=== PATIENT | male | born 1960 | race Caucasian/White ===

== ENCOUNTER 2024-10-08 15:41 | Observation (INO) | payer SELFPAY ==
[2024-10-08] VITALS (12 sets, daily range): BP systolic 95–188; BP diastolic 64–112; PULSE 64–91; BMI 22.3; BMI 23.3
[2024-10-08 09:53] LABS: % Basophils 0.6 % (0-2); % Eosinophils 2.4 % (0-6); % Immature Granulocytes 0.1 % (0-0.5); % Monocytes 6.9 % (1.7-9.3); Absolute Eosinophils 0.2 10^3/uL (0-0.7); Absolute Lymphocytes 2.1 10^3/uL (1.2-3.4); Absolute Monocytes 0.5 10^3/uL (0.1-0.6); Absolute Neutrophils 4.2 10^3/uL (1.4-6.5); Hematocrit 41.4 % (39.0-52.0); Hemoglobin 13.7 g/dL (13.0-18.0); Mean Corp Hgb Conc. 33.1 g/dL (33.0-37.0); Mean Corpuscular Volume 90.6 fL (80.0-94.0); Mean Platelet Volume 9.4 fL (7.4-10.4); Nucleated Red Blood Cells % 0 % (-); Platelet Count 245 10^3/uL (130-400); Red Blood Cell Count 4.57 10^6/uL (4.70-6.10); Red Cell Dist. Width 13.5 % (11.5-14.5); White Blood Cell Count 6.9 10^3/uL (4.8-10.8)
[2024-10-08 10:11] LABS: ALT (SGPT) 25 U/L (0-50); AST (SGOT) 24 U/L (17-59); Albumin 4.1 g/dl (3.5-5.0); Alkaline Phosphatase 78 U/L (38-126); Blood Urea Nitrogen 10 mg/dl (9-20); Calcium 9.3 mg/dl (8.4-10.2); Carbon Dioxide 27 mmol/L (22-30); Chloride 104 mmol/L (98-107); Glucose 115 mg/dl (70-99); Potassium 3.9 mmol/L (3.5-5.1); Sodium 137 mmol/L (135-145); Total Bilirubin 0.7 mg/dl (0.2-1.3); Total Protein 7.5 g/dl (6.3-8.2); eGFR > 60.00
--- NOTE | 2024-10-08 12:05 | EDRN ---
Radhika BROWN in room w/ pt at this time.
--- NOTE | 2024-10-08 13:52 | ED.GENMED ---
History of Present Illness
General
Chief Complaint: Fainting/Passed Out
Source: patient
Exam Limitations: none
Time Seen by Provider: 10/08/24 12:02
History of Present Illness
History of Present Illness:
64-year-old male presents with coworker and friend who states the patient has been having passing out episodes weekly over the past 3 weeks. Patient describes sudden drop attacks that are not preceded by chest pain or lightheadedness. It can
happen while he is sitting or standing. He cannot identify any significant trigger. He denies current chest pain. He denies a headache. Most recent episode was yesterday. The friend that accompanies him currently saw it happen. Friend had to
catch him before he hit the floor. Patient denies headache. No vision change. No unilateral numbness or weakness. No other complaints at this time
Phy Exam
Physical Exam
Physical Exam:
General: Well-appearing male no acute respiratory distress
HEENT: Normocephalic pupils equal round reactive to light atraumatic extract motions are intact
Heart: Regular rate and rhythm no murmurs
Lungs: Clear no wheeze
Neurologic exam: Alert and oriented no facial asymmetry good strength to the upper lower extremities
Extremities: No cyanosis
Skin: Warm no rash
Course
Orders/Labs/Results
Orders:
Orders
10/08/24 09:27
Electrocardiogram (*1) Urgent
Reason for Study: Syncope
EKG- Treatment ONCE
10/08/24 09:36
Complete Blood Count/With Diff Urgent
Comprehensive Metabolic Panel Urgent
10/08/24 12:13
CT Head W/o Iv Contrast Urgent
Comment:
Reason For Exam: syncope
Abnormal Lab Results
10/08/24
09:36
RBC 4.57 L 10^6/uL
(4.70-6.10)
Glucose 115 H mg/dl
(70-99)
10/08/24 09:36
0227/25 09:36
Vital Signs
Initial and Last Documented VS:
Initial Vital Signs
Temp Pulse Resp BP Pulse Ox
97.9 F 85 16 169/86 99
10/08/24 09:24 10/08/24 09:24 10/08/24 09:24 10/08/24 09:24 10/08/24 09:24
Last Documented Vital Signs
Temp Pulse Resp BP Pulse Ox
97.9 F 78 16 160/81 99
10/08/24 09:24 10/08/24 14:15 10/08/24 14:15 10/08/24 14:00 10/08/24 14:15
MDM/Problems Addressed
Differential Diagnosis Includes:
Drop attacks. Consider syncope versus seizure versus arrhythmia verse electrolyte abnormality
CT head was ordered which was negative. Labs reviewed without significant finding. There is no arrhythmias currently on monitor but patient has had frequent episodes over the past 3 weeks.
*Critical Care Note
Total Time (30-74mins, 75-104mins- exclusive of procedures): Not Applicable
Update Note
Update Note:
CT head negative. Concern for recurrent syncope with lack of prodrome with 3 recent episodes. Discussed with emergency room attending. Will admit to hospital for syncopal workup
ED Attending Note
-
Portions of this chart may have been created with voice recognition software.� Occasional wrong word or��sound alike� substitutions may have occurred due to the inherent limitations of voice recognition software.
Discharge Plan
Departure
Patient Disposition: Admit
Date of Disposition: 10/08/24
Time of Disposition: 14:18
Presentation/result/management discussed w/ accepting MD/DO: Hospitalist
Discharge Problem:
Syncope
Referrals:
NONE,* [Family Provider] -
Interventions
Interventions:
*Risk Screen - Suicide Last Done: 10/08/24 09:27
*General Assessment Last Done: 10/08/24 12:15
*Neglect/Abuse Screening Last Done: 10/08/24 09:27
ED- Fall Risk Assessment Last Done: 10/08/24 12:08
*ED COVID-19 Vaccine History Last Done: 10/08/24 12:15
ED- Cardiac Assessment Last Done: 10/08/24 12:22
ED- Neurological Assessment Last Done: 10/08/24 12:22
Discharge Date and Time
Print Language: FAROESE
--- NOTE | 2024-10-08 14:17 | EDRN ---
Pt OOB to BR and back to stretcher at this time. Friend has stepped out to get them both some food. Radhika BROWN said pt is okay to eat.
--- NOTE | 2024-10-08 14:40 | HPS.HSE ---
Family Physician
-
Family Physician: * NONE
Chief Complaint
-
passing out multiple times
History of Present Illness
64M Nauruan speaker no significant PMHX and PSHX, former ETOH use disorder, current smoker BiB coworker and friend seen at ER ;
- reports has been having passing out episodes weekly over the past 3 weeks.
- Most recent episode was yesterday.
- The friend that accompanies him currently saw it happen. Friend had to catch him before he hit the floor.
- describes sudden drop attacks that are not preceded by chest pain or lightheadedness.
- It can happen while he is sitting or standing.
- patent cannot identify any significant trigger.
Medical History
Past Medical History
Past Medical History: Reports None
Past Surgical History: Reports None
Social History
Tobacco: Non-smoker
Alcohol: None
Drug: None
Family History
Family History: Not pertinent
Allergies / Home Medications
Allergies reflects when Allergies were last updated in [email or web address].
Home Medications with original date entered in [email or web address]
Allergy/Medication List:
Allergies
Allergy/AdvReac Type Severity Reaction Status Date / Time
No Known Allergies Allergy Unverified 10/08/24 09:27
Review of Systems
-
Constitutional: Reports No Symptoms
EENT: Reports No Symptoms
Respiratory: Reports No Symptoms
Cardiac: Reports Syncope
Abdomen/GI: Reports No Symptoms
: Reports No Symptoms
Musculoskeletal: Reports No Symptoms
Skin: Reports No Symptoms
Neurological: Reports Other (syncope )
Endocrine: Reports No Symptoms
Hematologic/Lymphatic: Reports No Symptoms
Psych: Reports No Symptoms
Physical Exam
Vital Signs
Vital Signs
Temp Pulse Resp BP Pulse Ox
97.9 F 78 16 160/81 99
10/08/24 09:24 10/08/24 14:15 10/08/24 14:15 10/08/24 14:00 10/08/24 14:15
Physical Exam
General: Well Developed, Well Nourished and No Apparent Distress
HEENT: NormoCephalic, Moist mucous membranes and Atraumatic
Respiratory: Clear
Cardiac: S1/S2 and Regular Rhythm; No Murmur or Rub
GI: Soft, Non Tender, Non Distended and Normal Bowel Sounds; No Organomegaly
Rectal: Deferred by Provider
Musculoskeletal: No Clubbing, No Cyanosis and No Edema
Skin: No Rash
Neuro: Nonfocal/grossly intact
Laboratory Results
-
10/08/24 09:36
10/08/24 09:36
Laboratory Results
Total Bilirubin 0.7 mg/dl (0.2-1.3) 10/08/24 09:36
AST 24 U/L (17-59) 10/08/24 09:36
ALT 25 U/L (0-50) 10/08/24 09:36
Alkaline Phosphatase 78 U/L (38-126) 10/08/24 09:36
Data Reviewed
-
CT Scan: Report Reviewed by me
Medical Tests (Nuc Med, Echo, EKG etc): Report Reviewed by me
Lab Data: Labs Reviewed by me
Impression/Plan
-
Data
Unremarkable labs
CT Head W/o Iv Contrast
- No acute intracranial abnormality.
- Chronic ethmoid sinus inflammatory changes.
EKG
NORMAL SINUS RHYTHM
POSSIBLE LEFT ATRIAL ENLARGEMENT
LEFT AXIS DEVIATION
SEPTAL INFARCT , AGE UNDETERMINED
INFERIOR INFARCT
ABNORMAL ECG
NO PREVIOUS ECGS AVAILABLE
Confirmed by MORENO CARPENTER MD ([id number]) on 10/08/2024 1:32:31 PM
NO PRIOR hospitalist admission:
ASSESSMENT & PLAN
64M Nauruan speaker no significant PMHX and PSHX, former ETOH use disorder, current smoker BiB coworker and friend seen at ER for
passing out episodes weekly over the past 3 weeks;
Recurrent syncope without prodrome or preceding symptoms.
DDX: syncope versus seizure versus valvular heart dz vesus arrhythmia vs occult substance use disorder
HX multiple drop attacks 3 episodes in the past 3 weeks
HX Syncope of uncertain etiolgy in Aug 2024
- EKG and monitory show NSR
- NEG HCT
- Unremarkable admission labs
- UDS to complete work up
- TLM monitor
- ECHO in AM
- Ortho VSS
- Neuro consult
- CBC Card consult
Hi SBP
No priot HX benign HTN
- IV hydralazine PRN for SBP > 165, DBP > 110
- Observe BP
Former ETOH use disorder
- no signs of autonomic hyperaroousdal
- Observe VSS
Current smoker
- Nicotine replacement Tx
DVT Px: SQH
Full code
Obs TLM
--- NOTE | 2024-10-08 14:59 | EDRN ---
Radhika BROWN in to see pt.
--- NOTE | 2024-10-08 15:06 | EDRN ---
Dr. Franco in to see pt at this time.
--- NOTE | 2024-10-08 15:12 | CON.CAR ---
Addendum entered and electronically signed by Arvind Caldera MD 10/08/24 16:59:
64 yo male with h/o tobacco abuse, no routine medical care is admitted with recurrent syncope. He has episodes where he could be sitting or standing at work, feels 'shaky', and passes out. No chest pain. Exam with RRR, no murmurs, no edema.
Tele and EKG: normal sinus rhythm. EKG shows anterior, inferior infarct pattern. TnI pending.
Syncope. We are consulted to investigate cardiac etiology. Monitor tele overnight. Echo and stress in AM. If testing normal, will recommend outpatient predatory game hunter.
Original Note:
Consultation
Consultation Request
Date/Time Consultation Requested: 10/08/24 1445
Date/Time Consultation Performed: 10/08/24 1500
Requesting Provider: Dr. Franco
Performing Provider: Honey SELLERS for Dr. Caldera
Reason for Consultation: syncope
Medical History
-
Chief Complaint: LOC
History of Present Illness:
64 y/o male with hx syncope (details unclear but it happened about 5 years ago and he was hospitalized and does not recall, and then once last year and EMS checked on him, but he did not get further medical attention) and current smoker. He does not
see medical providers routinely. He is here for 3 episodes of LOC in the past 3 weeks. 3 weeks ago, his friend found him face down on the ground and confused. Last week, he was talking while sitting in the car and his hands started shaking, then his
eyes rolled back into his head and LOC lasted about 30 seconds. Finally, yesterday, while walking he started to go down and his friend caught him and brought him to the ground and said he saw his eyes roll back and after he came to he was, again
confused. Patient denies memory of this. He denies dizziness, CP, or SOB.
Past Medical History
Past Medical History: Other (as above)
Social History
Tobacco: Smoker
Alcohol: None
Drug: None
Family History
Family History: Reviewed & Not Pertinent
Allergies / Home Medications
Allergy/AdvReac Type Severity Reaction Status Date / Time
No Known Allergies Allergy Unverified 10/08/24 09:27
�Medication �Instructions �Recorded �Confirmed �Type
No Meds [No Current Medications] 10/08/24 10/08/24 History
Review of Systems
-
History Source: Patient and Other (and friend)
Neurological: Other (Loss of consciousness as described)
Physical Exam
Vital Signs
Temp Pulse Resp BP Pulse Ox
97.9 F 78 16 160/81 99
10/08/24 09:24 10/08/24 14:15 10/08/24 14:15 10/08/24 14:00 10/08/24 14:15
Lab Results
10/08/24 09:36
10/08/24 09:36
Physical Exam
General: Well Developed, Well Nourished and No Apparent Distress
HEENT: Normocephalic and Anicteric
Respiratory: Clear and Non Labored Respirations
Cardiac: Regular Rhythm
Musculoskeletal: No Edema
Skin: Warm and Dry
Neuro: AO x 3
Psych: Calm
Impression / Plan
-
Loss of consciousness/syncope:
-etiology unknown
-follow telemetry. EKG mildly abnormal as noted.
-will check troponin. Also check echo and stress echo this admit.
-neuro consulted as well
Elevated BP:
-may need to add meds- follow trend
Smoker:
-will need education on cessation prior to d/c
Data Reviewed
-
EKG: Tracing Personally Visualized and interpreted (NSR 76 BPM LAD, septal infarct)
CT Scan: Report Reviewed by me (No acute intracranial abnormality. Chronic ethmoid sinus inflammatory changes.)
Labs: Labs Reviewed by me
--- NOTE | 2024-10-08 15:19 | EDRN ---
Honey SELLERS w/ cardiology in room w/pt at this time.
[2024-10-08] MEDS: NICODERM TRANSDERMAL 21 MG TRANSDERM (15:21)
--- NOTE | 2024-10-08 17:27 | EDRN ---
Call placed to floor that No Delay Report sent to floor at 17:05. Message left for RN who will care for pt.
--- NOTE | 2024-10-08 17:37 | EDRN ---
ordered labs troponin and urine drug screen sent to lab at this time.
[2024-10-08 17:55] LABS: Amphetamines Negative (Negative); Barbiturates Negative (Negative); Benzodiazepines Negative (Negative); Buprenorphine Negative (Negative); Cocaine Negative (Negative); Marijuana Negative (Negative); Methadone Negative (Negative); Methamphetamines Negative (Negative); Opiates Negative (Negative); Phencyclidine Negative (Negative); Tricyclic Antidepressants Negative (Negative)
[2024-10-08 18:10] LABS: Troponin I < 0.012 ng/ml
--- NOTE | 2024-10-08 18:20 | PTCARENOTE ---
Pt admitted to 4W from ED, ambulated from stretcher to bed with standby assist. AAOx3, no acute complaints at this time. Educated pt on use of call rangel and plan of care.
[2024-10-08] MEDS: HEPARIN 5000 UNITS SC (19:26)
[2024-10-09 03:24] VITALS: BP 122/66
[2024-10-09 06:29] LABS: Hematocrit 40.1 % (39.0-52.0); Hemoglobin 13.7 g/dL (13.0-18.0); Mean Corp Hgb Conc. 34.2 g/dL (33.0-37.0); Mean Corpuscular Hgb 30.4 pg (27.0-31.0); Mean Corpuscular Volume 89.1 fL (80.0-94.0); Mean Platelet Volume 10.3 fL (7.4-10.4); Platelet Count 250 10^3/uL (130-400); Red Cell Dist. Width 13.6 % (11.5-14.5); White Blood Cell Count 6.8 10^3/uL (4.8-10.8)
[2024-10-09 07:09] LABS: Blood Urea Nitrogen 14 mg/dl (9-20); Calcium 9.2 mg/dl (8.4-10.2); Carbon Dioxide 23 mmol/L (22-30); Chloride 106 mmol/L (98-107); Estimated Creatinine Clearance 97 ml/min; Glucose 83 mg/dl (70-99); Potassium 4.5 mmol/L (3.5-5.1); Sodium 136 mmol/L (135-145); eGFR > 60.00
[2024-10-09] MEDS: HEPARIN 5000 UNITS SC (07:14)
[2024-10-09 07:23] LABS: TSH 2.81 uIU/ml (0.47-4.68)
[2024-10-09 07:51] VITALS: BP 139/80
--- NOTE | 2024-10-09 09:53 | EEG.RPT ---
Electroencephalogram Report
Recording
Date of EE10/09/24
Type of EEG: Routine
Length of EEG recordin minutes
Done with Video Recording: Yes
Patient Status: Inpatient
Recording Conditions: Awake and Drowsy
Hyperventilation Performed: No
Photic Stimulation Performed: Yes
Report
LESS THAN 1 HOUR EEG REPORT
LESS THAN 1 HOUR EEG INTERPRETATION:
Unremarkable EEG for age
CLINICAL CORRELATION:
A normal EEG does not rule out a diagnosis of epilepsy. If clinical suspicion for seizure persists, a prolonged recording may be warranted.
Clinical correlation is advised.
METHODS:
A 21 channel digitized electroencephalogram (EEG) was performed using the 10/20 international system of electrode placement and one-lead of ECG recorded. Video was recorded. Persyst quantitative EEG analysis was performed.
ELECTROENCEPHALOGRAPHER IMPRESSION(S):
Quality of study
Good
Background
There was an unremarkable anterior-posterior voltage gradient of alpha frequency.
With eye opening the background activity changed to a low voltage mixture of frequencies.
There were no significant asymmetries of background activity noted.
Sleep
Drowsiness present
Photic Stimulation
Produced driving symmetrically in most flash frequencies
ECG
Normal sinus rhythm
--- NOTE | 2024-10-09 12:06 | W.PN.HOSP.TC ---
Today's Communication/Plan
-
See plan
Assessment / Plan
Assessment / Plan
Impression:
Presentation with recurrent syncopal episodes.
No prior history of cardiovascular disease
Patient describes burning 2 episodes a year, although had 3 over the past months.
Reports prodromal. With body shakes and lightheadedness.
Last few episodes happened while squatting.
Denies any chest pain, abdominal pain.
Reports lower extremity pain on ambulation most likely claudication
ECG normal sinus rhythm
Echocardiogram with preserved biventricular function and no valvular abnormalities.
Stress echo nondiagnostic due to poor exercise tolerance with inability to achieve target heart rate. Exercise stopped due to leg numbness and funny feeling in the head.
Check lipid profile.
Lower extremity arterial ultrasound QUIANA�PVR.
Abdominal aorta ultrasound
Carotid ultrasound
Consider low-dose of aspirin and statin.
Will need outpatient cardiac monitoring, will be set up
Additional ischemic evaluation likely with nuclear stress test as outpatient
Noted to be orthostatic
Normal BMP
Will give IV fluids and monitor BP/orthostatic vital signs
Alcohol use disorder. Describes binge drinking, although remains sober for over a year.
Tobacco use disorder
Continue nicotine patch
Counseled and encouraged to quit
Anticipated Discharge: 24 - 48 hours
Subjective/Interval History
-
Date of Service: October 09, 2024
Objective Data
-
Labs:
Laboratory Results
10/09/24
05:18
WBC 6.8
Hgb 13.7
Hct 40.1
Plt Count 250
Sodium 136
Potassium 4.5
Chloride 106
Carbon Dioxide 23
BUN 14
Creatinine 0.7
Glucose 83
Calcium 9.2
Vital Signs:
Vital Signs
Temp Pulse Resp BP Pulse Ox
97.3 F 64 18 139/80 95
10/09/24 07:51 10/09/24 07:51 10/09/24 07:51 10/09/24 07:51 10/09/24 08:00
I&O
10/08/24 10/09/24 10/10/24
06:59 06:59 06:59
Intake Total 240 / 240
Output Total 400 / 400
Balance -160 / -160
Physical Exam
-
General: Well Developed and No Apparent Distress
HEENT: Normocephalic, Atraumatic and Moist Mucous Membranes
Respiratory: Clear to Auscultation
Cardiac: Regular Rhythm and S1/S2; Negative Murmur, Rub or Gallop
GI: Soft, Nontender, Nondistended and Normal Bowel Sounds; Negative Organomegaly
Rectal: Deferred by Provider
Musculoskeletal: No Clubbing, No Cyanosis and No Edema
Skin: Negative Rash
Neuro: Nonfocal/Grossly Intact
[2024-10-09 12:39] LABS: HDL Cholesterol 46 mg/dl; LDL Cholesterol, Calculated 153 mg/dl; Total Cholesterol 214 mg/dl (50-199); Triglyceride 76 mg/dl (10-149); Very Low Density Lipoprotein 15 mg/dl (0-30)
[2024-10-09] MEDS: NICODERM TRANSDERMAL 21 MG TRANSDERM (12:48)
[2024-10-09] MEDS: NSS 1000 IV (12:49)
--- NOTE | 2024-10-09 14:39 | CM ---
retail account manager reviewed patient's chart and met with patient and patient resides alone in a one story home, patient is independent with adl's and ambulation, no dme, patient does not have insurance and no PCP, uses [facility], patient is
originally from the [facility] and has supports from family and friends in area from the [place].
Plan; Home no needs
--- NOTE | 2024-10-09 15:09 | W.PN.CD ---
Today's Communication / Plan
-
Follow-up QUIANA/PVRs
If positive for PAD, start ASA 81 mg and high intensity statin
Start amlodipine 5 mg for elevated blood pressure
2-week outpatient monitor will be mailed to him
We will request cardiology follow-up with our office
Impression / Plan
-
64 yo male with h/o tobacco abuse, no routine medical care is admitted with recurrent syncope.
Loss of consciousness/syncope:
-etiology unknown. Possibly orthostatic hypotension. Unlikely cardiac syncope as he has a prodrome and echo with no structural heart disease.
-We will set up a 2-week outpatient monitor. No arrhythmias on telemetry here.
-neuro consulted as well
Claudication
-Had symptoms of leg numbness limiting his stress echocardiogram
-Follow-up QUIANA/PVRs (done but not read)
-Start ASA 81 mg and high-dose statin if he has evidence of PAD
Elevated BP:
-BP is mostly above goal here
-Start amlodipine 5 mg daily
Smoker:
-will need education on cessation prior to d/c
Subjective: Orthostatics positive. Receiving 1 L IV fluids at time of my assessment. Stress echo done earlier today was nondiagnostic due to leg numbness during the test. Probable claudication. QUIANA/PVRs ordered in addition to carotid ultrasound.
He feels well and is wondering when he can go home.
Physical Exam
Vital Signs/Labs
Vital Signs
Temp Pulse Resp BP Pulse Ox
97.3 F 64 18 139/80 95
10/09/24 07:51 10/09/24 07:51 10/09/24 07:51 10/09/24 07:51 10/09/24 08:00
10/08/24 10/09/24 10/10/24
06:59 06:59 06:59
Actual Weight 65.346 kg
10/09/24 05:18
10/09/24 05:18
Triglycerides 76 mg/dl (10-149) 10/09/24 05:18
LDL Cholesterol, Calc 153 mg/dl 10/09/24 05:18
VLDL Cholesterol, Calc 15 mg/dl (0-30) 10/09/24 05:18
HDL Cholesterol 46 mg/dl 10/09/24 05:18
TSH 2.81 uIU/ml (0.47-4.68) 10/09/24 05:18
LAB Results
10/08/24
17:32
Troponin I < 0.012
Physical Exam
Constitutional: No acute distress and Comfortable
Cardiovascular: Rhythm & rate is regular, Pedal edema is absent, S1S2 is normal and Murmur/rub/gallop absent
Respiratory: Respiratory effort normal and Lungs clear to auscul.
Neuro/Psych: AO x 3
Data Reviewed
-
Date of Service: October 09, 2024
Medical Decision Making: Reviewed Test Results, Independent Historian Assessment, Test Interpretation and Review of Case with other Provider
EKG: Tracing Personally Visualized and interpreted
Echo: Tracing Personally Visualized and interpreted
Labs: Labs Reviewed by me
[2024-10-09 15:40] VITALS: BP 180/92
[2024-10-09] MEDS: NORVASC 5 MG PO (15:40)
--- NOTE | 2024-10-09 17:44 | W.DS.TRANS ---
DC Summary - [employer]
-
Discharge Instructions:
Discharge Diagnosis/Procedures Syncope
Diet Low Cholesterol
Others Tests A cardiac nurse has been ordered for you.
This will be mailed to your home.
Instructions:
Stand-Alone Forms:
Changes to Home Medications: Yes
Discharge Medications:
DC Medications w/original date entered in [facility]
amlodipine 5 mg tablet 5 mg PO DAILY #30 tabs 10/09/24
aspirin 81 mg capsule 81 mg PO DAILY #30 caps 10/09/24
atorvastatin 20 mg tablet (Lipitor) 20 mg PO DAILY #30 tabs 10/09/24
Home Medication Changes
All of above
Pending Results: No
--- NOTE | 2024-10-09 18:10 | CON.NEURO ---
Neuro Assessment/Plan
Assessment
Head CT imgs rev'd, normal
EEG normal
syncope. doubt seizure.
agree, outpatient heart monitoring
Plan
no further neuro workup recommended
Consultation
Order
Date of Consultation: 10/09/24
Requesting Provider:
Reason for Consult:
Subjective/Objective
Subjective Data
Date of Service: October 09, 2024
He is a 64 year old man with recurrent syncopal episodes x3 weeks. At times, preceded by aura like feeling intoxicated. no post ictal.
patient thinks it may be triggered by intense emotion.
Objective Data
Vital Signs
Temp Pulse Resp BP Pulse Ox
36.3 C 74 18 180/92 99
10/09/24 15:40 10/09/24 15:40 10/09/24 15:40 10/09/24 15:40 10/09/24 15:40
Lab Results
10/09/24 05:18
10/09/24 05:18
Sodium 136 mmol/L (135-145) 10/09/24 05:18
Potassium 4.5 mmol/L (3.5-5.1) 10/09/24 05:18
BUN 14 mg/dl (9-20) 10/09/24 05:18
Glucose 83 mg/dl (70-99) 10/09/24 05:18
Calcium 9.2 mg/dl (8.4-10.2) 10/09/24 05:18
LDL Cholesterol, Calc 153 mg/dl 10/09/24 05:18
Ur Buprenorphine Negative (Negative) 10/08/24 17:33
Patient Allergies
No Known Allergies Allergy (Unverified 10/08/24 09:27)
Physical Exam
-
AAOx3, speech clear, language intact
VFF, EOMI, face symmetric
full strength b/l UE/LE
sensation intact to touch
Medications
-
Active Medications
Generic Name Dose Route Start Last Admin
Trade Name Freq PRN Reason Stop Dose Admin
Amlodipine Besylate 5 mg 10/09/24 16:00 10/09/24 15:40
Amlodipine 5 Mg Tablet PO 11/06/24 15:59 5 mg
DAILY PAULINO Administration
Bisacodyl 10 mg 10/08/24 17:40
Bisacodyl 10 Mg Rectal Suppository RECTAL 11/05/24 17:39
[id number] PRN
constipation
Heparin Sodium 5,000 units 10/08/24 20:00 10/09/24 07:14
Heparin 5,000 Units/Ml 1 Ml Vial SC 11/05/24 19:59 5,000 units
Q12 PAULINO Administration
Hydralazine HCl 5 mg 10/08/24 17:40
Hydralazine 20 Mg/Ml Vial IV 11/05/24 17:39
Q4HPRN PRN
for SBP > 165, DBP > 110
Sodium Chloride 1,000 mls @ 100 mls/hr 10/09/24 11:15 10/09/24 12:49
Nss IV 1,000 mls
.Q10H PAULINO Administration
Nicotine 21 mg 10/09/24 12:00 10/09/24 12:48
Nicotine 21 Mg Patch TRANSDERM 11/06/24 11:59 21 mg
DAILY PAULINO Administration
Patch Removal 1 patch 10/09/24 22:00
Remove Nicotine Patch REMOVE 11/06/24 21:59
HS PAULINO
Polyethylene Glycol 17 grams 10/08/24 17:40
Polyethylene Glycol Powder 17 Grams Packet PO 11/05/24 17:39
DAILYPRN PRN
constipation
Senna/Docusate Sodium 1 tablet 10/08/24 17:40
Docusate W/Senna (Julia-Colace) Tablet PO 11/05/24 17:39
BIDPRN PRN
constipation
Sodium Chloride 0 flush 10/08/24 18:00
Sodium Chloride 0.9% (Flush) Syringe IV 11/05/24 17:59
PER PROTOCOL PAULINO
Home Medications
�Medication �Instructions �Recorded
amlodipine 5 mg tablet 5 mg PO DAILY #30 tabs 10/09/24
aspirin 81 mg capsule 81 mg PO DAILY #30 caps 10/09/24
atorvastatin 20 mg tablet (Lipitor) 20 mg PO DAILY #30 tabs 10/09/24
== END 2024-10-09 18:17 | disposition home or self-care (01) ==
LOC: 4 WEST ACU 15:41
PROVIDERS: Nurse Practitioner; ADMITTING PHYSICIAN Internal Medicine; ATTENDING PHYSICIAN Internal Medicine; CONSULT PHYSICIAN Internal Medicine; CONSULT PHYSICIAN Psychiatry & Neurology Clinical Neurophysiology; EMERGENCY PHYSICIAN Emergency Medicine
DX: R55 Syncope and collapse (principal); F17.200 Nicotine dependence, unspecified, uncomplicated; R94.31 Abnormal electrocardiogram [ECG] [EKG]; F10.11 Alcohol abuse, in remission; R41.0 Disorientation, unspecified; R03.0 Elevated blood-pressure reading, without diagnosis of hypertension; I73.9 Peripheral vascular disease, unspecified; I71.40 Abdominal aortic aneurysm, without rupture, unspecified; I51.7 Cardiomegaly; R25.1 Tremor, unspecified; R42 Dizziness and giddiness; R20.0 Anesthesia of skin; M79.606 Pain in leg, unspecified; Z60.3 Acculturation difficulty; Z79.82 Long term (current) use of aspirin; Z79.899 Other long term (current) drug therapy
CPT/HCPCS: 93017; 70450; 76770; 80048; 80053; 80061; 80306; 84443; 84484; 85025; 85027; 93005; 93320; 93325; 93350; 93880; 93922; 95816; 99285; G0378

== ENCOUNTER → 2024-11-09 13:40 | Outpatient (REF) | payer OTHER, SELFPAY | LOC: CLINIC 13:40 | PROVIDERS: ATTENDING PHYSICIAN Surgery Vascular Surgery; FAMILY PHYSICIAN Nurse Practitioner Adult Health; OTHER PHYSICIAN Nurse Practitioner | DX: I71.43 Infrarenal abdominal aortic aneurysm, without rupture (principal); I65.22 Occlusion and stenosis of left carotid artery | CPT/HCPCS: 70496; 70498; Q9967 ==

== ENCOUNTER → 2024-11-11 08:22 | Outpatient (REF) | payer OTHER, SELFPAY | LOC: RCS 08:22 | PROVIDERS: ATTENDING PHYSICIAN Student in an Organized Health Care Education/Training Program; FAMILY PHYSICIAN Nurse Practitioner Adult Health | DX: R55 Syncope and collapse (principal) | CPT/HCPCS: 93225; 93226 ==

== ENCOUNTER → 2024-11-20 11:47 | Outpatient (REF) | payer OTHER, SELFPAY | LOC: HWRCS 11:47 | PROVIDERS: ATTENDING PHYSICIAN Nurse Practitioner | DX: R55 Syncope and collapse (principal) | CPT/HCPCS: 78452; 93017; A9500; J2785 ==

== ENCOUNTER 2024-12-08 05:55 | Inpatient (IN) | payer OTHER, SELFPAY ==
[2024-12-01 09:29] VITALS: BMI 24.0
[2024-12-01 10:05] LABS: INR 1.09; PT 14.4 Sec (11.4-14.6)
[2024-12-01 10:06] LABS: APTT 32.4 Sec (23.4-35.0)
[2024-12-01 10:15] LABS: % Basophils 0.7 % (0-2); % Eosinophils 2.4 % (0-6); % Immature Granulocytes 0.1 % (0-0.5); % Lymphocytes 30.2 % (20.5-51.1); % Monocytes 8.6 % (1.7-9.3); Absolute Basophils 0.1 10^3/uL (0-0.2); Absolute Eosinophils 0.2 10^3/uL (0-0.7); Absolute Lymphocytes 2.4 10^3/uL (1.2-3.4); Absolute Monocytes 0.7 10^3/uL (0.1-0.6); Absolute Neutrophils 4.6 10^3/uL (1.4-6.5); Hematocrit 41.4 % (39.0-52.0); Hemoglobin 13.8 g/dL (13.0-18.0); Mean Corp Hgb Conc. 33.3 g/dL (33.0-37.0); Mean Corpuscular Hgb 30.3 pg (27.0-31.0); Mean Platelet Volume 9.3 fL (7.4-10.4); Nucleated Red Blood Cells % 0 % (-); Platelet Count 280 10^3/uL (130-400); Red Blood Cell Count 4.55 10^6/uL (4.70-6.10); Red Cell Dist. Width 13.7 % (11.5-14.5)
[2024-12-01 10:19] LABS: Blood Urea Nitrogen 12 mg/dl (9-20); Calcium 10.1 mg/dl (8.4-10.2); Carbon Dioxide 29 mmol/L (22-30); Chloride 103 mmol/L (98-107); Estimated Creatinine Clearance 97 ml/min; Glucose 92 mg/dl (70-99); Potassium 5.2 mmol/L (3.5-5.1); Sodium 141 mmol/L (135-145); eGFR > 60.00
[2024-12-08] VITALS (36 sets, daily range): BP systolic 103–168; BP diastolic 60–99
[2024-12-08] MEDS: PERIDEX 0.12% ORAL RINSE 15 ML PO (07:13)
[2024-12-08] MEDS: NSS 500 IV (07:13)
[2024-12-08] MEDS: BACTROBAN NASAL 1 GRAM NASAL (07:13)
[2024-12-08] MEDS: LOW STRENGTH ASPIRIN 81 MG PO (07:18)
--- NOTE | 2024-12-08 07:24 | W.SUR.PREOP ---
Pre-Operative Surgical Note
-
I have examined this patient prior to the performance of the scheduled procedure.
The patient's condition is unchanged from the time of the current History and
Physical and the patient is able to undergo the scheduled procedure.
[2024-12-08 08:38] LABS: ACT-LR - POC 273 Seconds (116-155)
[2024-12-08 09:15] LABS: ACT-LR - POC 263 Seconds (116-155)
--- NOTE | 2024-12-08 09:22 | W.SUR.POST ---
Surgical Immediate Post Op
Note
Pre Op Diagnosis: Left carotid artery stenosis
Post Op Diagnosis:Left carotid artery stenosis
Procedure Performed: Left carotid endarterectomy
Primary Surgeon: Eric Miller III, MD
Secondary Surgeons: Julieta Ruth, PGY1
Anesthesia: GETA
Estimated Blood Loss: 12 ml
Fluids: See anesthesia flowsheet
Drains/Shunts: N/A
Specimens/Cultures: Left carotid plaque
Doppler/Duplex/Angio (Y/N): Y
Complications: None
Operative Findings: Successful removal of left carotid artery plaque causing carotid artery stenosis, upon awakening patient was able to move bilateral upper extremities and lower extremities to command and spontaneously
--- NOTE | 2024-12-08 09:38 | OR.RPT ---
Operative Report
Operative Report
Date of Operation: 12/08/2024
Pre Op Diagnosis: High-grade stenosis left internal carotid artery, asymptomatic
Post Op Diagnosis: High-grade stenosis left internal carotid artery, asymptomatic
Procedure: LEFT carotid endarterectomy with patch angioplasty using bovine pericardium
Surgeon: Eric Miller III, MD
Optical Technician: Julieta Ruth MD PGY1
Anesthesia: General
Complications: None
History and Indications for Procedure: 64-year-old male with high-grade asymptomatic left internal carotid artery stenosis
Procedure in Detail: Fredo Farnsworth was correctly identified and placed supine on the operating table. After adequate induction of anesthesia the left neck was positioned, prepped and draped in the usual sterile fashion. Preoperative antibiotics
were administered. A timeout procedure was performed with the nursing and anesthesia staff confirming the patients identity as well as the nature and laterality of the procedure.
The carotid bifurcation was marked with ultrasound at the beginning of the case. The incision was planned accordingly. An incision was made along the anterior border of the left sternocleidomastoid muscle. Electrocautery was used to divide the
subcutaneous tissue and platysma. The carotid sheath was entered with sharp dissection. The internal jugular vein was retracted laterally. The vagus nerve was identified and protected throughout the case. The common carotid artery was identified at
the base of this incision and carefully encircled with a vessel loop. The patient was systemically heparinized. The dissection was continued distally towards the carotid bifurcation. The facial vein was skeletonized, ligated and divided between ties
and clips. The proximal external carotid artery was encircled with a vessel loop. The distal internal carotid artery was encircled with a vessel loop at a soft spot on the artery beyond the plaque. The hypoglossal nerve was identified and protected.
The internal vessel loop was secured followed by the common and external. An arteriotomy was made on the distal common carotid artery with an 11-blade. This was extended proximally and distally with Gaviria scissors. The arteriotomy was extended
distally through the plaque to an area of normal appearing internal carotid artery. The distal vessel loop was replaced with a short tip hockey-stick type vascular clamp. An endarterectomy was performed with a Henderson elevator in the standard
fashion. The proximal extent of the plaque was transected with scissors. The distal end of the plaque in the internal carotid artery was feathered. A slight distal intimal flap was tacked down along the posterior wall with a single 7-0 Prolene
suture. The plaque extending into the external carotid artery was everted. Once the plaque was fully removed the endarterectomy plane was irrigated with heparinized saline and any loose fronds of tissue were removed. A pre-cut piece of bovine
pericardium was sewn in place using a running 6-0 Prolene suture. Prior to the completion of the patch the common carotid was allowed to forward bleed and the external was allowed to back bleed. The area under the patch was irrigated with
heparinized saline to remove any potential thrombus or debris. The anastomosis was completed.
The external vessel loop was released first, followed by the common and then the internal. There was an excellent pulse in the distal internal carotid artery. An excellent quality Doppler signal in the distal internal carotid artery was also
confirmed. The patch suture line was closely inspected for hemostasis and was achieved. Protamine was administered. Hemostasis was achieved in the wound bed. The wound was irrigated with saline solution.
The wound was then closed in layers. Sterile skin glue was applied. The patient awoke from anesthesia with no immediate neuro deficits and was taken to the PACU in stable condition.
Attestation: I was present and responsible for the entire procedure
Signed:
Eric Miller III, MD
Vascular Surgery
[facility]
[2024-12-08 10:18] LABS: Hemoglobin 12.3 g/dL (13.0-18.0); Mean Corp Hgb Conc. 34.2 g/dL (33.0-37.0); Mean Corpuscular Hgb 30.3 pg (27.0-31.0); Mean Corpuscular Volume 88.7 fL (80.0-94.0); Mean Platelet Volume 9.3 fL (7.4-10.4); Platelet Count 218 10^3/uL (130-400); Red Blood Cell Count 4.06 10^6/uL (4.70-6.10); Red Cell Dist. Width 13.7 % (11.5-14.5); White Blood Cell Count 13.7 10^3/uL (4.8-10.8)
[2024-12-08 10:34] LABS: Blood Urea Nitrogen 12 mg/dl (9-20); Calcium 8.5 mg/dl (8.4-10.2); Carbon Dioxide 22 mmol/L (22-30); Chloride 105 mmol/L (98-107); Estimated Creatinine Clearance 114 ml/min; Glucose 126 mg/dl (70-99); Potassium 4.2 mmol/L (3.5-5.1); Sodium 136 mmol/L (135-145); eGFR > 60.00
[2024-12-08] MEDS: OFIRMEV 100 IV (10:35)
[2024-12-08] MEDS: SUBLIMAZE 25 MCG IV (11:28)
[2024-12-08] MEDS: NSS 1000 IV ×2 (11:41→22:43)
[2024-12-08 12:54] LABS: Glucose - Point of Care 106 mg/dl (70-99)
--- NOTE | 2024-12-08 13:19 | PTCARENOTE ---
Received pt from PACU via bed with pill packer, IVF with right radial arterial line transduced, calibrated and monitored. All ports patent and secured. Correlates to left U/E cuff pressure. He is from the [place] and speaks broken [place]. He is
difficult to understand at times. Right AC with IVF as ordered. Left AC IV site capped, flushed and patent. Normal radial pulses. Weak pedal pulses. No edema. Pt placed on RA upon arrival. Pulse ox 99%. Lungs CTA. +BSX4. C/O hunger. He was informed
of the plan of care regarding hourly neuro checks throughout the night and into tomorrow morning. He was also informed that he is on bedrest until tomorrow, after the doctor sees him tomorrow he can get out of bed and I will cap his IVF and remove
the arterial line. He verbalized his understanding. Left neck incision SHRUTHI with surgical glue. Ecchymosis noted along the incision line and at the base of the incision. Safe environment maintained. Will continue to monitor.
[2024-12-08 13:30] LABS: Magnesium 2.1 mg/dl (1.6-2.3); Phosphorus 3.3 mg/dl (2.5-4.5)
[2024-12-08] MEDS: NICODERM TRANSDERMAL 14 MG TRANSDERM (15:56)
[2024-12-08] MEDS: TYLENOL 650 MG PO (17:52)
[2024-12-08] MEDS: HEPARIN 5000 UNITS SC (20:12)
--- NOTE | 2024-12-08 20:20 | PTCARENOTE ---
No changes. He is voiding adequate amounts of clear yellow urine. He is very pleasant and cooperative. His friend Migdalia translated discharge instructions regarding showering and s/s of infection and to call MD, and reinforced the freeman of care for
tonight. Lungs remain CTA. Good appetite.
--- NOTE | 2024-12-08 22:55 | PTCARENOTE ---
Pt GCS 15 SEARS, bedrest appreciated tn. Incision clean and dry, small amount ecchymosis. Afebrile. NSR on monitor. Art line zeroed and correlates with cuff. NSS as ordered. Room air, 97%. Tolerating diet. Voids in urinal. Pt updated on plan of care.
Will monitor.
[2024-12-09] VITALS (10 sets, daily range): BP systolic 130–162; BP diastolic 64–96
--- NOTE | 2024-12-09 02:24 | PTCARENOTE ---
No change in previous assessment. Pt resting comfortably, no c/o pain. Encouraged to apply ice pack to neck as ordered. Will monitor
[2024-12-09 03:17] LABS: Hematocrit 35.4 % (39.0-52.0); Hemoglobin 12.2 g/dL (13.0-18.0); Mean Corp Hgb Conc. 34.5 g/dL (33.0-37.0); Mean Corpuscular Hgb 30.6 pg (27.0-31.0); Mean Corpuscular Volume 88.7 fL (80.0-94.0); Mean Platelet Volume 9.2 fL (7.4-10.4); Platelet Count 238 10^3/uL (130-400); Red Blood Cell Count 3.99 10^6/uL (4.70-6.10); Red Cell Dist. Width 13.7 % (11.5-14.5); White Blood Cell Count 14.3 10^3/uL (4.8-10.8)
[2024-12-09 03:22] LABS: INR 1.07; PT 14.2 Sec (11.4-14.6)
[2024-12-09 03:23] LABS: APTT 28.9 Sec (23.4-35.0)
[2024-12-09 03:50] LABS: Blood Urea Nitrogen 12 mg/dl (9-20); Calcium 8.9 mg/dl (8.4-10.2); Carbon Dioxide 22 mmol/L (22-30); Chloride 111 mmol/L (98-107); Estimated Creatinine Clearance 114 ml/min; Glucose 140 mg/dl (70-99); Potassium 4.1 mmol/L (3.5-5.1); Sodium 142 mmol/L (135-145); eGFR > 60.00
--- NOTE | 2024-12-09 07:21 | CON.INTV ---
Consultation
Consultation Request
Date/Time Consultation Requested: 12/09/24-7 a.m.
Date/Time Consultation Performed: 12/09/24-7:30 AM
Requesting Provider: vascular surgery
Performing Provider: Dr. Shirley
Reason for Consultation: postoperative
Medical History
-
Chief Complaint: carotid stenosis
History of Present Illness:
64-year-old smoking male formally from [facility] with a history of PAD, carotid artery stenosis and mild abdominal aortic aneurysm who had significant left carotid artery stenosis and underwent left carotid endarterectomy-straightening machine feeder consulted for
postoperative critical care management 12/09/24.Patient denies any shortness of breath, chest pain, chest tightness, productive cough, abdominal pain, nausea, leg weakness or swelling, dysarthria, swallowing problems
Past Medical History
Past Medical History: None ( tobacco addiction. COPD suspected. Infrarenal AAA without rupture. PAD. Carotid artery stenosis.)
Social History
Tobacco: Smoker ( 67-srzh-bizj quit 2 months ago-now 5 cigars daily)
Alcohol: None
Living: With Family
Occupational Exposures: no known asbestos exposure
Environmental Exposures: no known tuberculosis exposure
Family History
Family History: Reviewed & Not Pertinent
Allergies / Home Medications
Allergies
Allergy/AdvReac Type Severity Reaction Status Date / Time
No Known Allergies Allergy Verified 12/08/24 06:33
Home Medications
�Medication �Instructions �Recorded �Confirmed �Last Taken �Type
amlodipine 5 mg tablet 5 mg PO DAILY #30 tabs 10/09/24 12/08/24 12/07/24 08:00 Rx
aspirin 81 mg capsule 81 mg PO DAILY #30 caps 10/09/24 12/08/24 12/07/24 08:00 Rx
atorvastatin 20 mg tablet (Lipitor) 20 mg PO DAILY #30 tabs 10/09/24 12/08/24 12/07/24 08:00 Rx
Review of Systems
-
Unable to Obtain full review of systems at this time due to: Other ( per HPI)
Vitals / Labs / Diagnostic Testing
Vital Signs
Temp Pulse Resp BP Pulse Ox
97.8 F 67 12 149/81 99
12/09/24 04:30 12/09/24 06:45 12/09/24 06:45 12/09/24 06:00 12/09/24 06:45
Lab Data
12/09/24 02:57
12/09/24 02:57
Laboratory Results
12/09/24
02:57
PT 14.2
INR 1.07
APTT 28.9
Diagnostic Testing:
Physical Exam
-
Exam:
well-nourished and well-developed in no apparent distress
HEENT-atraumatic, normocephalic
Neck-supple, no JVD, no bruit
Heart-regular rate and rhythm-no murmurs, rubs or gallops
Chest-clear to auscultation, no wheezes, crackles
Back-no tenderness
Abdomen-soft, nontender, nondistended, no hepatosplenomegaly
Extremities-no cyanosis, clubbing, edema and good peripheral pulses
Integument-intact, no rashes, lesions or ecchymosis
Neurology-alert and oriented, nonfocal motor and sensory exam
Assessment
-
64-year-old smoking male formally from [facility] with a history of PAD, carotid artery stenosis and mild abdominal aortic aneurysm who had significant left carotid artery stenosis and underwent left carotid endarterectomy-straightening machine feeder consulted for
postoperative critical care management 12/09/24.
Severe symptomatic left carotid artery stenosis
Status post left carotid endarterectomy-Dr. Mitchell 12/08/24
Mild leukocytosis
Mild chrszz-ibsppaagkl-ghvdjoemub 12.2
Hyperglycemia
Mediastinal and hilar lymphadenopathy suspicious for sarcoidosis-incidentally noted CT head and neck angiogram 11/09/2024
Conditions present prior to admission:
Tobacco addiction
PAD
Infrarenal AAA
Carotid artery stenosis
Former EtOH use disorder
Plan
postoperative surgical intensive care unit monitoring
Supplemental oxygen as needed
Incentive spirometry
Aspiration precautions
Neuro and vascular checks per protocol
Monitor blood pressure/perfusion pressures and pulses closely
Vascular surgery following-correspondence and operative notes reviewed
Ongoing smoking cessation counseling
DVT prophylaxis
Early nutrition
Early mobilization
Outpatient pulmonary follow-up recommended-smoking cessation counseling, PFTs, follow-up CT for mediastinal and hilar lymphadenopathy, yearly low-dose lung cancer screening CT
Critical care statement: A total of 55 minutes of critical care time was provided for this patient today. This includes management of unstable vital signs, evaluation of the patient at bedside, reviewing the patient's pertinent medical records
including radiographs, microbiology, laboratory evaluations, and discussion with primary team, consultants, pharmacy, nutrition, physical therapy, case management, charge nurse, critical care nursing, and respiratory therapy.
Diagnostic data:
Chest x-ray 12/08/24-NAD
CT head and neck angiogram 11/09/2024-11/09/24-79% stenosis of the proximal left internal carotid, no acute intracranial abnormalities, mild chronic paranasal sinusitis and maxillary sinusitis and ethmoid air cells, mediastinal and bilateral hilar
lymphadenopathy suspicious for sarcoidosis
Stress echocardiogram 10/09/2024-preexercise EF 55-60%, postexercise EF 65-70%, nondiagnostic due to poor exercise tolerance
Lexiscan stress test-negative for ischemia
Data Reviewed
-
EKG: Report reviewed by me
Radiology: Report reviewed by me
CT Scan: Report reviewed by me
Medical Tests (Nuc Med, Echo etc): Report reviewed by me
Labs: Labs reviewed by me
Old Records: Reviewed
Critical Care Time (in minutes): 55
--- NOTE | 2024-12-09 07:45 | PTCARENOTE ---
Pt sitting up in the bed. He is Ukran[place] and is difficult to understand at times. He too has stated that he doesn't always understand what we are telling him. He was informed to ask to repeat what we say so that he understands. He verbalized his
understanding. IVF capped by nurse practitioner for Dr. Miller. He was informed that I was going to remove his arterial line as ordered and hold pressure until there is no bleeding. Weak peripheral pulses, no edema. Lungs CTA. 21mg Nicotine patch to
be applied due to cravings overnight. Good bowel sounds. Voiding clear yellow urine. Left neck incision with ExeFen intact. Ecchymosis along incision line. He was instructed again to wash with soap and rinse with water. To pat it dry, not to rub it
and not to put anything on the incision line. His friend yesterday provided discharge instructions to him yesterday in his jamul tongue. Safe environment maintained. Will continue to monitor.
--- NOTE | 2024-12-09 07:50 | W.PN.VS ---
Addendum entered and electronically signed by Cornel Mitchell MD 12/09/24 11:52:
Seen and examined with DAVID Murillo and DAVID Duran. Agree with findings as noted below. Surgical site flat. No hematoma. Incision clean dry and intact. Neurologically no focal deficits. Plan as discussed and noted below.
Original Note:
Today's Communication / Plan
-
See below.
Assessment/Plan
-
Assessment: 64-year-old male POD #1 left carotid endarterectomy
Plan:
Discontinue arterial line
Discontinue IV fluids
OOB to chair with progression to ambulation as tolerated
Smoking cessation education, patient with restlessness will increase nicotine patch dose
Possible discharge later this afternoon pending patient progression
Subjective Data
-
Date of Service: December 09, 2024
Patient seen and examined at bedside, offers no complaints. Reports he feels great today, denies pain, headache, unilateral weakness, dysphagia, or vision loss/changes. Reports eagerness for discharge to home.
Objective Data
-
Vital Signs
Temp Pulse Resp BP Pulse Ox
98.2 F 67 12 149/81 99
12/09/24 07:36 12/09/24 06:45 12/09/24 06:45 12/09/24 06:00 12/09/24 06:45
Intake and Output
12/08/24 12/09/24 12/10/24
06:59 06:59 06:59
Intake Total 3160 / 3160
Output Total 3605 / 3605
Balance -445 / -445
Intake:
Oral fluids 1440 / 1440
IV fluids (Total) 1720 / 1720
Nss 1,000 ml @ 80 mls/hr IV . 1520 / 1520
[id number] PAULINO Rx#:[id number]
nss 200 / 200
Output:
Urine, Voided 3605 / 3605
Lab Results
12/09/24 02:57
12/09/24 02:57
Calcium 8.9 mg/dl (8.4-10.2) 12/09/24 02:57
Phosphorus 3.3 mg/dl (2.5-4.5) 12/08/24 10:11
Magnesium 2.1 mg/dl (1.6-2.3) 12/08/24 10:11
Physical Exam
-
No apparent distress, resting in bed comfortably
Left neck incision CDI, no evidence of hematoma, suture line well-approximated, tongue midline
No tachycardia
No dyspnea on room air
ABD flat
Patient moves bilateral upper extremities and lower extremity spontaneously and to command with equal strength
--- NOTE | 2024-12-09 08:00 | PTCARENOTE ---
Right radial arterial line removed, hemostasis obtained, gauze dressing applied and secured with silk tape. He understands to call for nurse if there is blood o the dressing or if it starts to swell up. Call rangel is within reach.
[2024-12-09] MEDS: NORVASC 5 MG PO (08:20)
[2024-12-09] MEDS: HEPARIN 5000 UNITS SC (08:21)
[2024-12-09] MEDS: ASPIR LOW (ENTERIC COATED) 81 MG PO (08:21)
[2024-12-09] MEDS: NICODERM TRANSDERMAL 21 MG TRANSDERM (08:24)
[2024-12-09] MEDS: LIPITOR 20 MG PO (08:33)
--- NOTE | 2024-12-09 10:49 | PTCARENOTE ---
Pt tolerated walk around the ICU monitored with RN. He was conversant with no SOB.
--- NOTE | 2024-12-09 11:30 | CM ---
Patient seen at bedside in ICU. Patient resides alone in a one story home. Prior to admission patient reported he was independent with adl's and ambulation, no dme. Patient goes to the [facility] and he patient does not have insurance and
no PCP, uses [email or web address], patient is originally from the [facility] and has supports from family and friends in area from the [place].
Plan; Home no needs; watch for VN needs
--- NOTE | 2024-12-09 11:46 | PTCARENOTE ---
After walk SBP 168, Opal SELLERS notified. Repeat BP once rested for about 40 minutes was improved with SBP 138. She is aware. Awaiting Discharge orders.
--- NOTE | 2024-12-09 13:00 | W.DS.TRANS ---
DC Summary - [employer]
-
Discharge Instructions:
Discharge Diagnosis/Procedures Left carotid endarterectomy
Diet As tolerated
Activity No strenuous activity
Driving Restrictions Not until seen by your Dr
Bathing Restrictions OK to Shower
Instructions:
Stand-Alone Forms: DC Instr - Vascular OR
Changes to Home Medications: No
Discharge Medications:
DC Medications w/original date entered in [employer]
amlodipine 5 mg tablet 5 mg PO DAILY #30 tabs 10/09/24
aspirin 81 mg capsule 81 mg PO DAILY #30 caps 10/09/24
atorvastatin 20 mg tablet (Lipitor) 20 mg PO DAILY #30 tabs 10/09/24
Home Medication Changes
Pending Results: No
--- NOTE | 2024-12-09 13:23 | PTCARENOTE ---
Care taken to read discharge instructions. I clarified date and times of follow-up appointments. He verbalized that he understand how to care and clean his left neck incision. These instructions were also provided by his friend Migdalia yesterday evening
in their [place] and si[place] tongue. He then too verbalized his understanding of what to do if he exhibits symptoms again, the care of his incision and the importance of smoking cessation. He also understands that he is to call mechanical integrity engineer for screening due to
smoking history.
== END 2024-12-09 13:37 | disposition home or self-care (01) | DRG 39 ==
LOC: ICU 05:55
PROVIDERS: Nurse Practitioner; ADMITTING PHYSICIAN Surgery Vascular Surgery; CONSULT PHYSICIAN Internal Medicine Critical Care Medicine
PROC: 03UJ0KZ Supplement Left Common Carotid Artery with Nonautologous Tissue Substitute, Open Approach (ICD-10-PCS; 2024-12-08)
PROC: 03CJ0ZZ Extirpation of Matter from Left Common Carotid Artery, Open Approach (ICD-10-PCS; 2024-12-08)
DX: I65.22 Occlusion and stenosis of left carotid artery (principal); F17.200 Nicotine dependence, unspecified, uncomplicated; Z71.6 Tobacco abuse counseling
CPT/HCPCS: 88304; 88311; 35301; 36415; 71045; 71046; 80048; 82962; 83735; 84100; 85025; 85027; 85610; 85730; 86850; 86900; 86901; 93005; 95938; 95941; 95955; 99406

== ENCOUNTER 2025-01-08 01:21 | Inpatient (IN) | payer OTHER, SELFPAY ==
[2025-01-07 21:01] VITALS: BP 162/80
--- NOTE | 2025-01-07 22:13 | ED.GENMED ---
History of Present Illness
General
Chief Complaint: Swelling
Source: patient
Time Seen by Provider: 01/07/25 21:47
History of Present Illness
History of Present Illness:
64-year-old male presents to the emergency room complaining of pain and swelling of his left neck. Patient began having symptoms about 24 to 48 hours ago. Patient has significant pain in the area. He has pain with swallowing but denies any
difficulty breathing. He has had chills. No nausea or vomiting. Patient states that his neck was healing well and everything was fine postoperatively until this started a couple days ago.
Phy Exam
Physical Exam
Physical Exam:
General: Awake, Alert, Oriented X3. No acute distress.
Vitals: unremarkable
Head: Atraumatic
Eyes: Pupils equal, EOMI
Throat: Airway intact, no exudates. Palate appears normal. Tongue is midline. No stridor
Neck: Left neck has significant erythema and swelling. Area is tender to palpation. Healed carotid endarterectomy incision noted
Lungs: Clear and equal b/l
Heart: Regular rate, no murmurs
Abd: Soft, Nontender, No pulsatile mass
Neuro: Nonfocal
Skin: Warm, dry, no rash
Extremities: pulses equal b/l, no edema
Scores
Heart Failure Risk
Heart Failure Risk Score: Not Applicable
Course
Orders/Labs/Results
Orders:
Orders
01/07/25 22:04
0.9% Sodium Chloride 1000 ml [Nss] 1,000 ml IV BOLUS
Acetaminophen [Tylenol] 1,000 mg PO NOW STA
HYDROmorphone [Dilaudid] 0.5 mg IV NOW STA
CR Chest - 2 Views Urgent
Comment:
Reason For Exam: fever, neck swelling
01/07/25 22:06
CT Neck Angio W/wo Iv Contrast Urgent
Comment:
Reason For Exam: left neck swelling, one month ago
01/07/25 22:16
Complete Blood Count/With Diff Urgent
Comprehensive Metabolic Panel Urgent
Lactic Acid Q4H
Comment: CANCEL 2nd LACTIC ACID IF 1st LACTIC ACID IS LESS THAN 2
Blood Culture Q30M
LOUIS Source: Blood/Venous
Specimen Description:
Blood Culture Q30M
LOUIS Source: Blood/Venous
Specimen Description:
01/07/25 22:57
Piperacillin/Tazo 4.5 Gram [Zosyn] 4.5 gram in 100 ml IV NOW
Vancomycin [Vancocin] 1,500 mg 0.9% Sodium Chloride 500 ml [Nss] 500 ml IV NOW
01/07/25 23:00
Flush (0.9% Sodium Chloride) [Flush (Nss)] See Dose Instructions IV PER PROTOCOL
01/07/25 23:36
Vancomycin [Vancocin] 1,500 mg 0.9% Sodium Chloride 500 ml [Nss] 500 ml IV NOW
01/08/25 00:40
Admit/Transfer Patient As Directed
Co-Sign Provider:
Level of Care: Inpatient admission
Assign to:: IMU- Intermediate Care
Physician / Group: [facility]
Diagnosis: L Neck Abscess
Reason for Hospitalization: L Neck Abscess
Expected length of stay greater than two midnights?: Yes
ELOS- Estimated Length of Stay in days: 4
I certify the patient meets the requirements for IP care: Yes
PRN Pain Medication Management As Directed
May give lesser potent ordered pain med per pt: Yes
preference::
Protocol:: Medication orders for pain may be administered in a
manner that supports deferring to patient preference
when the pt is:
- Requesting an ordered lesser potent pain medication.
Least to most potent pain medications are defined
as: acetaminophen < NSAID < tramadol < opioids
(morphine, oxycodone, hydromorphone).
- Requesting a lesser dose of the same medication IF
ORDERED.
- Requesting a less intrusive route of administration
if both routes are prescribed by the provider (PO <
IV).
01/08/25 00:41
Code Status As Directed
Resuscitation Status: Full Code
01/08/25 00:50
Wound Culture [Wound/Abscess/Other Culture] Urgent
LOUIS Source: Abscess
Specimen Description:
Date Specimen was Collected: 01/08/25
Time Specimen was Collected: 00:30
Comment: L neck
01/08/25 02:15
Lactic Acid Q4H
Comment: CANCEL 2nd LACTIC ACID IF 1st LACTIC ACID IS LESS THAN 2
Abnormal Lab Results
01/07/25
22:16
WBC 16.5 H 10^3/uL
(4.8-10.8)
RBC 4.55 L 10^6/uL
(4.70-6.10)
Abs Immat Gran (auto) 0.1 H 10^3/uL
(0-0.05)
Absolute Neuts (auto) 12.6 H 10^3/uL
(1.4-6.5)
Absolute Monos (auto) 1.5 H 10^3/uL
(0.1-0.6)
Neutrophils % 76.1 H %
(42.2-75.2)
Lymphocytes % 14.0 L %
(20.5-51.1)
BUN 8 L mg/dl
(9-20)
Creatinine 0.6 L mg/dL
(0.7-1.3)
Glucose 110 H mg/dl
(70-99)
AST 84 H U/L
(17-59)
ALT 124 H U/L
(0-50)
Total Protein 8.5 H g/dl
(6.3-8.2)
01/07/25 22:16
01/07/25 22:16
Vital Signs
Initial and Last Documented VS:
Initial Vital Signs
Temp Pulse Resp BP Pulse Ox
98.2 F 100 20 162/80 98
01/07/25 21:01 01/07/25 21:01 01/07/25 21:01 01/07/25 21:01 01/07/25 21:01
Last Documented Vital Signs
Temp Pulse Resp BP Pulse Ox
98.2 F 99 16 162/80 99
01/07/25 21:01 01/07/25 22:11 01/07/25 22:11 01/07/25 21:01 01/07/25 22:11
MDM/Problems Addressed
Differential Diagnosis Includes:
Abscess, pseudoaneurysm, hematoma
MDM/Problems Addressed:
Patient presents with left-sided neck swelling that has become progressively larger over the past 2 days or so. His exam is concerning for a postoperative infection or pseudoaneurysm. However there is no pulsatile nature to it. Patient noted to
be febrile here. Labs show an elevated white count at 16.5. Chemistries show mild elevation of AST and ALT. CT of the neck shows a large fluid collection which appears to be an abscess in the left neck around the carotid but the carotid itself
appears to be intact Case discussed with Dr. Miller. Recommends broad-spectrum antibiotics. Keep patient n.p.o. and plan will be taken to the operating in the morning for washout. Patient's abscess actually began to drain spontaneously here in the
emergency room. Culture sent of the purulent discharge.
*Radiology
Radiology exam reviewed: preliminary read by ED provider (No acute abnormalities on chest x-ray by my review) and radiology read reviewed ([facility] report)
*Pulse Oximetry
Patient hypoxic: no
*Critical Care Note
Total Time (30-74mins, 75-104mins- exclusive of procedures): 32 min
comment:
Critical care statement: A total of 32 minutes of critical care time was provided for this patient. This includes management of unstable vital signs, evaluation of the patient at bedside, reviewing the patient's pertinent medical records, discussion
with consultants, review of old EKGs and review of pertinent medical records. This time with separate from time utilized to perform the aforementioned documented procedures
ED Attending Note
-
Portions of this chart may have been created with voice recognition software.� Occasional wrong word or��sound alike� substitutions may have occurred due to the inherent limitations of voice recognition software.
Discharge Plan
Departure
Patient Disposition: Admit
Date of Disposition: 01/07/25
Time of Disposition: 23:19
Admit to: Med/Surg
Presentation/result/management discussed w/ accepting MD/DO: Hospitalist
Condition: Fair
Discharge Problem:
Abscess of neck
Prescriptions:
No Action
amlodipine 5 mg Tablet
5 mg PO DAILY Qty: 30 0RF
aspirin 81 mg capsule
81 mg PO DAILY Qty: 30 0RF
atorvastatin [Lipitor] 20 mg tablet
20 mg PO DAILY Qty: 30 0RF
Referrals:
NONE,* [Active, Internal Medicine]
Interventions
Interventions:
*Risk Screen - Suicide Last Done: 01/07/25 21:01
*General Assessment Last Done: 01/07/25 21:01
*Neglect/Abuse Screening Last Done: 01/07/25 21:01
*ED- Fall Risk Assessment Last Done: 01/07/25 22:11
*ED COVID-19 Vaccine History Last Done: 01/07/25 22:11
ED- Cardiac Assessment Last Done: 01/07/25 22:11
ED- Pulmonary Assessment Last Done: 01/07/25 22:11
ED-Skin Assessment Last Done: 01/07/25 22:11
Discharge Date and Time
Print Language: PERSIAN
[2025-01-07] MEDS: DILAUDID 0.5 MG IV (22:14)
[2025-01-07] MEDS: NSS 1000 IV (22:15)
[2025-01-07] MEDS: TYLENOL 1000 MG PO (22:15)
[2025-01-07 22:22] VITALS: BP 144/79
[2025-01-07 22:32] LABS: % Basophils 0.3 % (0-2); % Eosinophils 0.1 % (0-6); % Immature Granulocytes 0.5 % (0-0.5); % Neutrophils 76.1 % (42.2-75.2); Absolute Basophils 0.1 10^3/uL (0-0.2); Absolute Immature Granulocytes 0.1 10^3/uL (0-0.05); Absolute Lymphocytes 2.3 10^3/uL (1.2-3.4); Absolute Monocytes 1.5 10^3/uL (0.1-0.6); Absolute Neutrophils 12.6 10^3/uL (1.4-6.5); Hematocrit 40.3 % (39.0-52.0); Mean Corp Hgb Conc. 34.7 g/dL (33.0-37.0); Mean Corpuscular Hgb 30.8 pg (27.0-31.0); Mean Corpuscular Volume 88.6 fL (80.0-94.0); Mean Platelet Volume 9.4 fL (7.4-10.4); Nucleated Red Blood Cells % 0 % (-); Platelet Count 282 10^3/uL (130-400); Red Blood Cell Count 4.55 10^6/uL (4.70-6.10); Red Cell Dist. Width 12.8 % (11.5-14.5); White Blood Cell Count 16.5 10^3/uL (4.8-10.8)
[2025-01-07 22:44] LABS: ALT (SGPT) 124 U/L (0-50); AST (SGOT) 84 U/L (17-59); Albumin 4.6 g/dl (3.5-5.0); Alkaline Phosphatase 115 U/L (38-126); Blood Urea Nitrogen 8 mg/dl (9-20); Calcium 9.2 mg/dl (8.4-10.2); Carbon Dioxide 25 mmol/L (22-30); Chloride 100 mmol/L (98-107); Glucose 110 mg/dl (70-99); Potassium 3.6 mmol/L (3.5-5.1); Sodium 136 mmol/L (135-145); Total Bilirubin 1.2 mg/dl (0.2-1.3); Total Protein 8.5 g/dl (6.3-8.2); eGFR > 60.00
[2025-01-07 22:55] LABS: Lactic Acid 1.3 mmol/L (0.7-2.0)
[2025-01-07] MEDS: ZOSYN 100 IV (23:39)
[2025-01-07 23:52] VITALS: BP 131/70
[2025-01-08] VITALS (26 sets, daily range): BP systolic 98–172; BP diastolic 56–88; BMI 24.4
[2025-01-08] MEDS: FLUSH (NSS) 1 FLUSH IV (00:18)
[2025-01-08] MEDS: VANCOCIN 530 MG IV (00:19)
--- NOTE | 2025-01-08 00:44 | HPS.HSE ---
Family Physician
-
Family Physician: PHYSICIAN PRIVATE
Chief Complaint
-
Neck Swelling
History of Present Illness
Patient is a 64y M with PMH significant for carotid stenosis s/p L CEA who presents to ED complaining of swelling in the L neck x 4 days. Patient underwent L CEA on 12/08/24 for carotid stenosis with clinical history of recurrent syncopal events.
He had no issues with the surgery or post-op period. Saturday of this week, patient noted swelling of the L neck near the area of his incisions. This swelling has steadily increased in size / severity since that time. Patient reports associated /
intermittent fevers and chills. He states that he had no pain initially - but today he began to note some discomfort in the L neck and L headache. With progressive swelling, patient presented to the ED for further evaluation.
CT scan was done in the ED which shows large abscess in the L neck surrounding the L carotid artery. No evidence of anastomotic leak, bleeding, etc.
During his time in the ED - and specifically during his CT scan - patient noted some new drainage from the L neck / incision sites of serosanguinous / purulent material.
Medical History
Past Medical History
Past Medical History: Reports Other
Additional Past Medical History:
ASCVD / Carotid Stenosis
Hypertension
AAA
Past Surgical History: Reports Other
Additional Past Surgical History:
Left CEA with Bovine Pericardium Patch (12/08/24)
Social History
Tobacco: Non-smoker
Alcohol: None
Drug: None
Family History
Family History: Not pertinent
Allergies / Home Medications
Allergies reflects when Allergies were last updated in [facility].
Home Medications with original date entered in [facility]
Allergy/Medication List:
Allergies
Allergy/AdvReac Type Severity Reaction Status Date / Time
No Known Allergies Allergy Verified 01/07/25 21:06
Home Medications
amlodipine 5 mg tablet 5 mg PO DAILY #30 tabs 10/09/24
aspirin 81 mg capsule 81 mg PO DAILY #30 caps 10/09/24
atorvastatin 20 mg tablet (Lipitor) 20 mg PO DAILY #30 tabs 10/09/24
Review of Systems
-
History Source: Patient
A 12 point ROS was completed and negative except as noted: Yes
Constitutional: Reports Fever and Chills; Denies Fatigue
EENT: Reports Other (L neck swelling.); Denies Sore Throat
Respiratory: Denies Cough or Trouble Breathing
Cardiac: Denies Chest Pain or Palpitations
Abdomen/GI: Denies Abdominal Pain, Nausea, Vomiting or Diarrhea
Musculoskeletal: Denies Joint Pain or Edema
Neurological: Denies Dizzy or Headache
Psych: Denies Depression or Anxiety
Physical Exam
Vital Signs
Vital Signs
Temp Pulse Resp BP Pulse Ox
98.2 F 99 16 162/80 99
01/07/25 21:01 01/07/25 22:11 01/07/25 22:11 01/07/25 21:01 01/07/25 22:11
Physical Exam
General: Other (64y M in no acute distress.)
HEENT: Other (L neck with firm, mildly tender swelling. Dressing in place at present. Some purulent / bloody discharge from neck.)
Respiratory: Clear; No Wheezes, Rales or Rhonchi
Cardiac: S1/S2 and Regular Rhythm; No Murmur
GI: Soft, Non Tender, Non Distended and Normal Bowel Sounds
Musculoskeletal: No Clubbing, No Cyanosis and No Edema
Laboratory Results
-
01/07/25 22:16
01/07/25 22:16
Laboratory Results
Lactic Acid 1.3 mmol/L (0.7-2.0) 01/07/25 22:16
Total Bilirubin 1.2 mg/dl (0.2-1.3) 01/07/25 22:16
AST 84 U/L (17-59) H 01/07/25 22:16
ALT 124 U/L (0-50) H 01/07/25 22:16
Alkaline Phosphatase 115 U/L (38-126) 01/07/25 22:16
Impression/Plan
-
A/P: Patient is a 64y M with PMH significant for carotid stenosis s/p L CEA one month ago who presents to ED complaining of progressive swelling of the L neck x 4 days.
Left Neck Abscess
Sepsis secondary to the above
- Admit for further evaluation and treatment.
- Patient presents with tachycardia, tachypnea, leukocytosis and CT scan showing neck abscess.
- CT scan shows large abscess (5 x 4.7 x 7.2cm).
- IV abx this evening.
- Vascular Surgery consulted and tentative plan is for OR with wash-out / evacuation of abscess in the AM.
- Follow-up results of intra-operative cultures and adjust treatment as needed.
- Follow fever curve, monitor for any new / worsening symptoms.
ASCVD
s/p L CEA (12/08/24)
- No evidence of bleeding / leakage from surgical site.
- Vasc Surgery eval as noted above.
Abnormal LFTs
- Unclear etiology.
- Appears new from prior.
- No new medications, etc.
- No active GI symptoms / complaints.
- Follow for changes.
DVT Prophylaxis: SCDs
Code Status: Full
[2025-01-08] MEDS: LR 1000 IV (03:49)
[2025-01-08 04:18] LABS: Hematocrit 33.1 % (39.0-52.0); Hemoglobin 11.4 g/dL (13.0-18.0); Mean Corp Hgb Conc. 34.4 g/dL (33.0-37.0); Mean Corpuscular Hgb 30.6 pg (27.0-31.0); Mean Corpuscular Volume 88.7 fL (80.0-94.0); Mean Platelet Volume 9.3 fL (7.4-10.4); Platelet Count 243 10^3/uL (130-400); Red Blood Cell Count 3.73 10^6/uL (4.70-6.10); Red Cell Dist. Width 12.6 % (11.5-14.5); White Blood Cell Count 14.4 10^3/uL (4.8-10.8)
[2025-01-08 04:40] LABS: Blood Urea Nitrogen 7 mg/dl (9-20); Calcium 8.4 mg/dl (8.4-10.2); Carbon Dioxide 23 mmol/L (22-30); Chloride 108 mmol/L (98-107); Estimated Creatinine Clearance 110 ml/min; Glucose 103 mg/dl (70-99); Potassium 3.6 mmol/L (3.5-5.1); Sodium 136 mmol/L (135-145); eGFR > 60.00
--- NOTE | 2025-01-08 04:41 | PTCARENOTE ---
Received verbal report from LYNN Rico. Pt arrived to unit via bed and ambulated with a steady gait. Pt aaox3. NSR on monitor 97% on RA. LR infusing @ 125 mL/hr. Left neck dressing changed. Large amount of pink tinged purulent drainage oozing from
neck. Assessment and vitals as documented. Pt is resting in bed with call rangel in reach.
[2025-01-08] MEDS: ZOSYN 50 IV (05:42)
--- NOTE | 2025-01-08 07:31 | CON.VAS ---
Addendum entered and electronically signed by Eric Miller III, MD 01/08/25 09:26:
This patient was seen and examined in collaboration with VERITO Cordova. I agree with the history and physical exam as well as the assessment and plan. I have the following additions:
Left carotid endarterectomy on 12/08/2024
Seen for postoperative visit in the office 2 weeks ago
At that time incision was clean and dry, healing
Patient with no complaints up until Saturday when he started to experience discomfort and swelling of the left neck
Progressed over the last several days
Febrile
Leukocytosis
On physical exam he is nontoxic-appearing and in no distress
Non labored breathing. No respiratory distress
Normal speech
Left neck incision is draining purulent fluid
CT angiogram personally reviewed which demonstrates large fluid collection in the left neck
OR for neck exploration. Deep surgical site infection suspected. Concern for patch involvement based on CTA in which case he will need replacement with vein.
IV ABX
Plan discussed with patient in detail. Technical aspects of this procedure were discussed with him in detail. Benefits and rationale for this approach were discussed with him in detail. Operative risks were discussed with him in detail including
but not limited to bleeding, nerve injury, recurrent infection, stroke, heart attack, wound healing complications and need for additional surgery
He expressed a clear understanding of our conversation and agrees to proceed with surgery as detailed above.
Signed:
Eric Miller III, MD
Vascular Surgery
[facility]
Original Note:
Consultation
Consultation Request
Date/Time Consultation Performed: 01/08/2025 7:00
Performing Provider: Paul
Reason for Consultation: Left neck infection status post CEA
Medical History
-
Chief Complaint: Left neck swelling, pain, drainage
History of Present Illness:
64-year-old male with past medical history significant for hypertension, AAA, left carotid endarterectomy with patch angioplasty on 12/08/[address] Miller. Patient presented to the emergency room last night for increased pain to the left neck,
pain with swallowing, swelling, redness. Patient states he was doing well postoperatively until Saturday. On Saturday patient had noted some swelling and some discomfort to the left neck. His friend had noted some redness to the left neck yesterday
which prompted his ER visit. Vascular consult for left neck infection status post CEA.
Patient seen at bedside this a.m. with Dr. Miller. Patient's left neck site has begun draining. Left neck dressing removed, saturated with purulent drainage. There is purulent drainage along the entirety of the suture line. Skin still appears
intact and well-approximated. Erythematous from collarbone to jaw. Soft along the incision, indurated right below the ear around the jaw. CT neck shows large fluid collection around the carotid.
Past Medical History
Past Medical History: Other (See above)
Past Surgical History: Other (Left CEA on 12/08/2024)
Social History
Tobacco: Non-Smoker
Alcohol: None
Drug: None
Living: With Family
Family History
Family History: Reviewed & Not Pertinent
Allergies / Home Medications
Allergy/AdvReac Type Severity Reaction Status Date / Time
No Known Allergies Allergy Verified 01/07/25 21:06
�Medication �Instructions �Recorded �Confirmed �Type
amlodipine 5 mg tablet 5 mg PO DAILY #30 tabs 10/09/24 01/08/25 Rx
aspirin 81 mg capsule 81 mg PO DAILY #30 caps 10/09/24 01/08/25 Rx
atorvastatin 20 mg tablet (Lipitor) 20 mg PO DAILY #30 tabs 10/09/24 01/08/25 Rx
Review of Systems
-
History Source: Patient
All other systems: Negative unless noted
Constitutional: Reports No Symptoms
EENT: Reports Other (Discomfort with swallowing)
Respiratory: Reports No Symptoms
Cardiac: Reports No Symptoms
Vascular: Denies Leg Pain / Claudication
Abdomen/GI: Reports No Symptoms
: Reports No Symptoms
Musculoskeletal: Reports Edema
Skin: Reports Other (Redness, swelling at the left neck)
Neurological: Reports No Symptoms
Physical Exam
Vital Signs
Temp Pulse Resp BP Pulse Ox
98.4 F 75 16 115/64 96
01/08/25 04:26 01/08/25 06:00 01/08/25 06:00 01/08/25 04:00 01/08/25 06:37
Lab Results
01/08/25 03:58
Physical Exam
General: No Apparent Distress
HEENT: Normocephalic and Atraumatic
Respiratory: Non Labored Respirations
Cardiac: Negative JVD
Breast: Deferred by me
GI: Soft and Non Tender
Musculoskeletal: No Clubbing, No Cyanosis and Edema (Left neck)
Skin: Warm and Other (Erythema, induration, purulent drainage to the left neck incisional site)
Neuro: Awake, Alert and Oriented
Psych: Calm
Assessment / Plan
-
64-year-old male here with left neck infection status post CEA on 12/08/2024, symptoms began on Saturday per the patient
Plan:
- N.p.o.
- OR today for left neck washout, possible redo CEA with vein graft
- Agree with antibiotics
- Dr. Miller spoke with patient at bedside and he is agreeable to this plan
Data Reviewed
-
CT Scan: Discussed with Patient
Labs: Labs Reviewed by me
--- NOTE | 2025-01-08 08:17 | W.PN.HOSP.TC ---
Today's Communication/Plan
-
see PN
Assessment / Plan
Assessment / Plan
64yo M with PMHx of HTN, ACSVD, disiness, carotid stenosis s/p CEA L on 12/08/24 came with worsening L neck swelling noticed for past 5 days with purulent drainage, found loculated abscess on L surrounding common carotid and origin of L carotid
A/P
#L neck abscess, most likely related to recent L CEA
LEFT carotid endarterectomy with patch angioplasty using bovine pericardium on 12/08/24
ID consult
VascSx for I&D
Vanco/Cefepime, Flagyl (MRSA/Pseudomonas and gram neg coverage needed
Follow postOP and Bcx
#Transaminitis
#Hx of alcohol abuse
follow LFT
patient did not consume alcohol for >1 year
US RUQ
hepatitis panel
#Hx of smoking
Nicodermn PRN
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
No overt neurological deficit
tylenol
PT/OT
#ACSVD
#HLD
#essential HTN
cont home meds
DVT ppx Hep
Full code
I ahve spent at least 59min reviewing chart, test results, communication with consultants and providing direct patient care
Anticipated Discharge: > 48 hours
Subjective/Interval History
-
Date of Service: January 08, 2025
Objective Data
-
Labs:
Laboratory Results
01/07/25 01/08/25 01/08/25
22:16 03:58 10:00
WBC 16.5 H 14.4 H
Hgb 14.0 11.4 L Pending
Hct 40.3 33.1 L Pending
Plt Count 282 243
Sodium 136 136
Potassium 3.6 3.6
Chloride 100 108 H
Carbon Dioxide 25 23
BUN 8 L 7 L
Creatinine 0.6 L 0.6 L
Glucose 110 H 103 H
Calcium 9.2 8.4
Total Bilirubin 1.2 Pending
AST 84 H Pending
ALT 124 H Pending
Alkaline Phosphatase 115 Pending
01/08/25
16:00
WBC
Hgb Pending
Hct Pending
Plt Count
Sodium
Potassium
Chloride
Carbon Dioxide
BUN
Creatinine
Glucose
Calcium
Total Bilirubin
AST
ALT
Alkaline Phosphatase
Vital Signs:
Vital Signs
Temp Pulse Resp BP Pulse Ox
98.2 F 75 16 115/64 96
01/08/25 08:07 01/08/25 06:00 01/08/25 06:00 01/08/25 04:00 01/08/25 06:37
Review of Systems
-
History Source: Patient
All other systems: Reviewed and negative
Constitutional: Reports Chills
Physical Exam
-
General: No Apparent Distress
HEENT: Other (large L neck lump with purulent drainage)
Cardiac: Regular Rhythm
GI: Soft, Nontender and Nondistended
Musculoskeletal: No Clubbing, No Cyanosis and No Edema
Neuro: Awake, Alert, Oriented and AO x 3
Psych: Calm
[2025-01-08] MEDS: MAXIPIME 2000 MG IV (08:20)
[2025-01-08] MEDS: STERILE WATER FOR INJECTION 10 ML IV ×3 (08:20→21:12)
[2025-01-08] MEDS: FLAGYL 500 MG 100 IV ×3 (08:20→22:49)
[2025-01-08 08:24] LABS: ALT (SGPT) 95 U/L (0-50); AST (SGOT) 60 U/L (17-59); Albumin 3.4 g/dl (3.5-5.0); Alkaline Phosphatase 91 U/L (38-126); Direct Bilirubin 0.2 mg/dl (0.0-0.4); Total Bilirubin 1.1 mg/dl (0.2-1.3); Total Protein 6.4 g/dl (6.3-8.2)
[2025-01-08 08:51] LABS: Hepatitis B Surface Antigen Negative (Negative)
[2025-01-08 09:10] LABS: Hepatitis B Core Ab, Total Reactive (Negative); Hepatitis B Surface Antibody Negative; Hepatitis C Antibody Negative (Negative)
[2025-01-08 09:39] LABS: Hematocrit 31.6 % (39.0-52.0)
[2025-01-08] MEDS: PERIDEX 0.12% ORAL RINSE 15 ML PO (09:57)
[2025-01-08] MEDS: BACTROBAN 2% OINTMENT 1 APPLIC NASAL (10:02)
[2025-01-08 12:02] LABS: ACT-LR - POC 250 Seconds (116-155)
[2025-01-08 12:42] LABS: ACT-LR - POC 224 Seconds (116-155)
--- NOTE | 2025-01-08 12:48 | CON.INTV ---
Consultation
Consultation Request
Date/Time Consultation Requested: 01/08/2025 - 122
Date/Time Consultation Performed: 01/08/2025 - 1247
Requesting Provider: VERITO Cordova
Performing Provider: Dr. Nino
Reason for Consultation: post-op left neck washout with arterial patch replacement
Medical History
-
Chief Complaint: Left neck swelling + pain
History of Present Illness:
64-year-old male with a past medical history of PAD, left carotid artery stenosis s/p CEA (12/08/2024), history of syncope, former alcoholic, currently sober, and AAA who presents with left neck swelling near his jaw/throat. Also has pain in that
region but no difficulty breathing or swallowing. on 12/08/2024 he had a left-sided cEA with patch angioplasty with bovine pericardium for asymptomatic high-grade carotid stenosis. Patient was seen by vascular surgery on 12/21/2024, and he was doing
well at that time with no fevers, chills, and incision site looked well with signs of healing and no signs or symptoms of infection or hematoma or pseudoaneurysm. He then started to develop left-sided jaw/throat pain and swelling x 4 days. The
swelling has steadily increased in size since this past Saturday (01/04/2025). In the ER he was afebrile to 98.2 �F, pulse rate 100, respiratory rate 20, BP 162/80 and saturating 98% on room air. Labs showed leukocytosis to 16.5, blood cultures were
collected, and CTA neck showed a large 7.5 cm complex rim-enhancing multiseptated fluid collection on the left side of his neck. Vascular surgery was consulted, and saw that the left neck incision was draining purulent fluid. Patient was consented
to the OR for neck exploration. Today, the patient underwent a left neck exploration and washout with excision of his previous bovine patch with a redo patch angioplasty using his left GSV. There were no complications, and the patient was
transferred here to the ICU postoperatively with [employer] services consulted for additional management/recommendations.
When I saw the patient, he was resting in bed in no acute distress, and was drowsy. Still able to appropriately answer my questions. Currently saturating 95% on room air, heart rate 93, and BP via A-line 136/60. Still has mild left-sided neck
pain/swelling but currently denies headache, shortness of breath or chest pain, nausea, fevers or chills.
PMHx: PAD, carotid artery stenosis s/p left CEA (12/08/2024), AAA, syncope, history of alcohol abuse, currently sober
PSHx: Left carotid endarterectomy (12/08/2024)
Past Medical History
Past Medical History: Other (Above as per HPI)
Past Surgical History: Other (Above as per HPI)
Social History
Tobacco: Former Smoker
Alcohol: Former
Drug: None
Allergies / Home Medications
Allergies
Allergy/AdvReac Type Severity Reaction Status Date / Time
No Known Allergies Allergy Verified 01/07/25 21:06
Home Medications
�Medication �Instructions �Recorded �Confirmed �Last Taken �Type
amlodipine 5 mg tablet 5 mg PO DAILY #30 tabs 10/09/24 01/08/25 12/07/24 08:00 Rx
aspirin 81 mg capsule 81 mg PO DAILY #30 caps 10/09/24 01/08/25 12/07/24 08:00 Rx
atorvastatin 20 mg tablet (Lipitor) 20 mg PO DAILY #30 tabs 10/09/24 01/08/25 12/07/24 08:00 Rx
Review of Systems
-
History Source: Patient
All other systems: Negative unless noted
Vitals / Labs / Diagnostic Testing
Vital Signs
Temp Pulse Resp BP Pulse Ox
97.9 F 108 21 141/79 97
01/08/25 16:00 01/08/25 16:37 01/08/25 16:37 01/08/25 16:37 01/08/25 16:37
Lab Data
01/08/25 14:08
01/08/25 14:08
Laboratory Results
01/08/25
14:08
PT 17.0 H
INR 1.36
APTT 34.3
Microbiology
01/08/25 11:20 Abscess Gram Stain - Preliminary
01/08/25 01:40 Abscess Gram Stain - Preliminary
Diagnostic Testing:
Physical Exam
-
HEENT: Anicteric and Other (Bandage on left anterior neck)
Cardiovascular: S1/S2 and Peripheral Edema (negative)
Respiratory: Clear, Wheeze (negative), Rales (negative) and Rhonchi (negative)
GI: Soft, Non Distended, Non Tender and Normal Bowel Sounds
Neurology: Awake, Tremors (negative) and Other (Drowsy, likely from recent anesthesia)
Skin: Warm and Dry
General: Respiratory Distress (negative), Comfortable, Fever (negative), Chills (negative) and Sweats (negative)
Assessment
-
Assessment: 64-year-old male with a past medical history of PAD, left carotid artery stenosis s/p CEA (12/08/2024), history of syncope, former alcoholic, currently sober, and AAA who presents with left neck swelling near his jaw/throat. Also has
pain in that region but no difficulty breathing or swallowing. on 12/08/2024 he had a left-sided cEA with patch angioplasty with bovine pericardium for asymptomatic high-grade carotid stenosis. Patient was seen by vascular surgery on 12/21/2024, and
he was doing well at that time with no fevers, chills, and incision site looked well with signs of healing and no signs or symptoms of infection or hematoma or pseudoaneurysm. He then started to develop left-sided jaw/throat pain and swelling x 4
days. The swelling has steadily increased in size since this past Saturday (01/04/2025). In the ER he was afebrile to 98.2 �F, pulse rate 100, respiratory rate 20, BP 162/80 and saturating 98% on room air. Labs showed leukocytosis to 16.5, blood
cultures were collected, and CTA neck showed a large 7.5 cm complex rim-enhancing multiseptated fluid collection on the left side of his neck. Vascular surgery was consulted, and saw that the left neck incision was draining purulent fluid. Patient
was consented to the OR for neck exploration. On 01/08/2025, the patient underwent a left neck exploration and washout with excision of his previous bovine patch with a redo patch angioplasty using his left GSV. There were no complications, and the
patient was transferred here to the ICU postoperatively with [employer] services consulted for additional management/recommendations.
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
Impression:
#Surgical site infection involving recent CEA site of left neck s/p left neck exploration and washout with excision of bovine patch and redo patch angioplasty using left great saphenous vein (POD #0)
#Leukocytosis due to above
#Acute anemia
#Metabolic acidosis (mild) with preserved anion gap
#Transaminitis
#PAD
#AAA
#Carotid artery stenosis s/p left CEA (12/08/2024)
#History of alcohol abuse (currently sober)
#Right-sided internal carotid artery disease with 50-70% stenosis in the intracranial component
#Large multilevel disc�osteophyte complexes with severe facet joint arthrosis in the C-spine causing moderate spinal cord compression, central canal stenosis and severe neural foraminal narrowing - this is likely due to osteoarthritis
Plan:
Postoperative surgical intensive care unit monitoring
Supplemental oxygen as needed to maintain SpO2 >90-94%
prn nebulized bronchodilators - not currently bronchospastic
Incentive spirometry encouraged 10x per hour for at least 4 hrs a day
Aspiration precautions
Pain control
Neuro and vascular checks per protocol
Maintain MAP>65
Replete electrolytes with K>4, Mg>2
Maintain euglycemia with goal BG 140-180
Vascular surgery following-correspondence and operative notes reviewed
Transfuse blood products as needed to keep Hb>7g/dL, and plt>50k (given post-operative status)
DVT prophylaxis
Early nutrition
Early mobilization
He will need to continue outpatient follow-up with Dr. Miller s/p discharge
Continue ICU level of care for this critically ill patient who needs frequent neurovascular checks and postoperative ICU care per vascular surgery.
Critical care statement: A total of 38 minutes of critical care time was provided for this patient today. This includes management of unstable vital signs, evaluation of the patient at bedside, reviewing the patient's pertinent medical records
including radiographs, microbiology, laboratory evaluations, and discussion with primary team, consultants, pharmacy, nutrition, physical therapy, case management, charge nurse, critical care nursing, and respiratory therapy.
Data:
CTA neck with/without IV contrast 01/07/2025:
1. LARGE 7.5 cm COMPLEX RIM-ENHANCING MULTISEPTATED FLUID COLLECTION in the left side of the neck in the left carotid and masticators spaces surrounding the left carotid arteries and extending into the left parotid gland and overlying subcutaneous
fat. Diagnostic possibilities are (1) a LARGE ABSCESS or (2) a large expansile liquefied hematoma.
2. Recent left carotid endarterectomy and patch angioplasty.
3. Less than 50% diameter stenosis in the proximal right internal carotid artery.
4. 50-70% diameter stenosis in the intracranial right internal carotid artery.
5. Large multilevel disc-osteophyte complexes and severe facet joint arthrosis in the cervical spine causing moderate multilevel spinal cord compression, moderate central canal stenosis, and severe neural foraminal narrowing.
--- NOTE | 2025-01-08 12:51 | PTCARENOTE ---
Patient transferred to OR for left neck surgery, for transfer to ICU at this time. Report given to Kacy BAILEY.
--- NOTE | 2025-01-08 13:23 | W.SUR.POST ---
Surgical Immediate Post Op
Note
Pre Op Diagnosis: Left neck infection
Post Op Diagnosis: same
Procedure Performed: Left neck washout, excision of bovine pericardial patch and redo patch angioplasty with saphenus vein
Primary Surgeon: Paul
Secondary Surgeons: Faraz
Anesthesia: General
Estimated Blood Loss: 50cc
Fluids: See anesthesia flow sheet
Drains/Shunts: EMILY
Specimens/Cultures: patch
Doppler/Duplex/Angio (Y/N): Y
Complications: None
Operative Findings: woke from anesthesia moving all extemities
--- NOTE | 2025-01-08 14:11 | OR.RPT ---
Operative Report
Operative Report
Date of Operation: 01/08/2025
Pre Op Diagnosis:
1. Left neck surgical site infection
2. Recent left carotid endarterectomy with patch angioplasty using bovine pericardium
Post Op Diagnosis:
1. Left neck surgical site infection
2. Recent left carotid endarterectomy with patch angioplasty using bovine pericardium
Procedure:
1. Left neck exploration and washout
2. Excision of bovine patch and redo patch angioplasty with left great saphenous vein
3. [place] of left great saphenous vein for carotid patch angioplasty
Surgeon: Eric Miller III, MD
Pin Chaser: Julieta Ruth MD PGY1, VERITO Cordova
Anesthesia: General
Complications: None
History and Indications for Procedure: 64-year-old male 30 days postop from left carotid endarterectomy. Presented with swelling, erythema and evidence of surgical site infection to the left neck. He was taken to the operating room for exploration.
Procedure in Detail: Fredo Farnsworth was correctly identified and placed supine on the operating table. After adequate induction of anesthesia the left neck was positioned, prepped and draped in the usual sterile fashion. Ultrasound was used to
identify and tomas the great saphenous vein from the saphenofemoral junction to the mid thigh on the left. The left groin and thigh were then prepped and draped in the usual sterile fashion. Preoperative antibiotics were administered. A timeout
procedure was performed with the nursing and anesthesia staff confirming the patients identity as well as the nature and laterality of the procedure.
I started by reopening the left neck incision. Gross purulence was encountered immediately upon entering the neck incision. The fluid was cultured and sent to microbiology. Vicryl sutures in the deeper tissue were removed with scissors. Blunt
dissection was then used to reopen the entire neck cavity. Purulent fluid was also identified deeper in the neck surrounding the bovine patch. The entire surgical wound was reopened and self-retaining retractors were placed. Using a combination
of sharp dissection and Kitner blunt dissection the carotid anatomy was exposed. Proximal control was obtained around the common carotid artery at the base of the incision with a vessel loop. The distal internal carotid artery was very carefully
exposed using sharp dissection and blunt Kitner dissection. Distal control was obtained with vessel loops. The external carotid artery was exposed in a similar fashion but there was dense scar tissue throughout this area and I could not safely
control this with a vessel loop. The hypoglossal nerve was clearly identified and protected.
Using separate clean instruments I then made an incision over the proximal left thigh at the previous skin tomas. Using electrocautery and sharp dissection the great saphenous vein was identified. An appropriate length of the vein was dissected. A
right angle clamp was placed on the proximal vein near the saphenofemoral junction. A silk tie was placed on the distal aspect of the vein and ligated. The vein was then transected and dilated with heparinized saline solution. The anterior
surface of the vein was marked. The vein was then transected proximally. A silk suture ligature was placed around the saphenofemoral junction stump. The vein was then opened longitudinally with Gaviria scissors. The vein segment was fashioned
appropriately to be used as a patch. There were no valves within the vein segment. The vein was then placed in heparinized saline on the back table. The thigh incision was inspected, irrigated and closed in layers. Systemic heparin was
administered and a therapeutic ACT was subsequently confirmed.
The internal vessel loop was secured followed by the common. A short tip hockey-stick clamp was placed on the external carotid artery. I used an 11 blade to open the bovine patch at its midportion. Gaviria scissors were used to extend this
proximally and distally. I then carefully removed the entire bovine patch along the suture line circumferentially using an 11 blade. The entire patch was removed and sent to microbiology for culture. The vein patch was then brought onto the
field. The patch was sewn in place using a running 6-0 Prolene suture. Prior to the completion of the patch the common carotid was allowed to forward bleed and the external was allowed to back bleed. The area under the patch was irrigated with
heparinized saline to remove any potential thrombus or debris. The anastomosis was completed.
The external clamp was released first, followed by the common and then the internal. There was an excellent pulse in the distal internal carotid artery. An excellent quality Doppler signal in the distal internal carotid artery was also confirmed.
The patch suture line was closely inspected for hemostasis and was achieved. Protamine was administered. I then pulse irrigated the wound with 3 L of a betadine/saline solution. Hemostasis was achieved in the wound bed. A #10 EMILY drain was left in
the wound bed and brought out through a separate stab incision at the skin. This was secured in place with a nylon suture at the skin. Interrupted Vicryl sutures were used to close the sternocleidomastoid muscle over the carotid repair. The skin
and subcutaneous tissue was reapproximated with interrupted Nylon sutures. The EMILY drain was connected to bulb suction. Sterile dressings were applied.
The patient awoke from anesthesia with no immediate neuro deficits and was taken to the PACU in stable condition.
Attestation: I was present and responsible for the entire procedure
Signed:
Eric Miller III, MD
Vascular Surgery
[facility]
[2025-01-08] MEDS: DILAUDID 0.25 MG IV ×2 (14:13→14:26)
[2025-01-08 14:29] LABS: Hematocrit 31.7 % (39.0-52.0); Mean Corp Hgb Conc. 34.7 g/dL (33.0-37.0); Mean Corpuscular Hgb 31.3 pg (27.0-31.0); Mean Corpuscular Volume 90.1 fL (80.0-94.0); Mean Platelet Volume 9.7 fL (7.4-10.4); Platelet Count 243 10^3/uL (130-400); Red Blood Cell Count 3.52 10^6/uL (4.70-6.10); Red Cell Dist. Width 12.9 % (11.5-14.5); White Blood Cell Count 15.3 10^3/uL (4.8-10.8)
[2025-01-08 14:46] LABS: INR 1.36
[2025-01-08 14:47] LABS: APTT 34.3 Sec (23.4-35.0)
[2025-01-08 14:53] LABS: Blood Urea Nitrogen 7 mg/dl (9-20); Calcium 7.8 mg/dl (8.4-10.2); Carbon Dioxide 19 mmol/L (22-30); Chloride 109 mmol/L (98-107); Estimated Creatinine Clearance 110 ml/min; Glucose 132 mg/dl (70-99); Potassium 3.6 mmol/L (3.5-5.1); Sodium 138 mmol/L (135-145); eGFR > 60.00
[2025-01-08] MEDS: NSS 1000 IV (15:06)
[2025-01-08] MEDS: LR IV (15:23)
--- NOTE | 2025-01-08 15:48 | CON.ID ---
Consultation
-
Date/Time Consultation Requested: 01/08/2025 0816
Date/Time Consultation Performed: 01/08/2025 1045
Requesting Provider: Dr. Gavin
Performing Provider: Dr. Flores
Reason for Consultation: Neck abscess
Chief Complaint / Past History
History of Present Illness
Fredo Farnsworth is a 64-year-old man being evaluated at the request of Dr. Gavin in regards to a left neck abscess. History is obtained from chart review, along with patient interview.
The patient recently was an inpatient at [facility] in late November, during which time he underwent left carotid endarterectomy (on 12/08/2024).
He presents back to [facility] [address] [facility] on 01/07 complaining of pain and swelling in the left neck area which began approximately 24 to 48 hours prior. He noted pain with swallowing, but denied any difficulty breathing. He reported chills. No
history of nausea or vomiting.
Workup in the ER revealed a leukocytosis. Imaging of the neck area revealed a large 7.5 cm rim-enhancing fluid collection. Vascular Surgery was consulted, and patient is s/p OR exploration of the area.
Past History
Additional Past Medical History:
ASCVD
Carotid stenosis
HTN
AAA
Additional Past Surgical History:
Left CEA with bovine pericardium patch (12/08/2024)
Allergy History:
No Known Allergies Allergy (Verified 01/07/25 21:06)
Medications Reviewed: Yes
Current Antibiotics:
Cefepime 2 g IV every 8 hours
Metronidazole 500 mg IV every 8 hours
Social History
Tobacco: Non-Smoker
Alcohol: None
Drug: None
Family History
Family History: Not Pertinent
Review of Systems
Vital Signs
Temp Pulse Resp BP Pulse Ox
98.2 F 87 11 113/67 99
01/08/25 14:40 01/08/25 14:45 01/08/25 14:45 01/08/25 14:45 01/08/25 14:45
Physical Exam
Physical Exam
Constitutional: No Acute Distress, Comfortable and Non-toxic
Head: Normocephalic
Eyes: Pupils Equal, Pupils Round, No Conjunctival Hemorrhage and Sclera Anicteric
Oral: No Thrush and No Ulcers
Cardiovascular: S1/S2; Negative S3/S4 or Murmur
Pulmonary: Clear; Negative Wheezes or Rales
Gastrointestinal: Soft, Non Tender, Non Distended, No Rebound and No Guarding
Extremities: Negative Edema, Cyanosis or Erythema
Wound: Other (Left neck area dressed. EMILY drain in place with serosanguineous fluid)
Neurological: Awake and Alert
Psychological: Calm
Lab / Diagnostic Study Results
01/08/25 14:08
01/08/25 14:08
Abs Immat Gran (auto) 0.1 10^3/uL (0-0.05) H 01/07/25 22:16
Absolute Neuts (auto) 12.6 10^3/uL (1.4-6.5) H 01/07/25 22:16
Absolute Lymphs (auto) 2.3 10^3/uL (1.2-3.4) 01/07/25 22:16
Absolute Monos (auto) 1.5 10^3/uL (0.1-0.6) H 01/07/25 22:16
Absolute Basos (auto) 0.1 10^3/uL (0-0.2) 01/07/25 22:16
Immature Gran % 0.5 % (0-0.5) 01/07/25 22:16
Neutrophils % 76.1 % (42.2-75.2) H 01/07/25 22:16
Lymphocytes % 14.0 % (20.5-51.1) L 01/07/25 22:16
Monocytes % 9.0 % (1.7-9.3) 01/07/25 22:16
Eosinophils % 0.1 % (0-6) 01/07/25 22:16
Basophils % 0.3 % (0-2) 01/07/25 22:16
PT 17.0 Sec (11.4-14.6) H 01/08/25 14:08
INR 1.36 01/08/25 14:08
Lactic Acid Cancelled 01/08/25 02:15
Microbiology Results
Micro:
01/08/25 11:20 Wound Culture - Pending
Abscess Gram Stain - Preliminary
01/08/25 01:40 Wound Culture - Pending
Abscess Gram Stain - Preliminary
01/08/25 11:20 Anaerobic Culture - Pending
Abscess
01/07/25 22:16 Blood Culture - Pending
Blood/Venous
01/07/25 22:16 Blood Culture - Pending
Blood/Venous
Imaging:
01/07/2025 CT neck with angio: A large 7.5 cm complex rim-enhancing multiseptated fluid collection is noted in the left side of the neck in the left carotid and breading machine tender spaces surrounding the left carotid artery and extending into the left parotid
gland with overlying subcutaneous fat. Please see full dictation for additional detail. Film personally viewed.
Assessment / Plan
Left neck abscess
S/p recent left CEA
Leukocytosis
ASCVD
Carotid stenosis
HTN
AAA
Recommendations:
Continue with cefepime. Transition dose to 1 g IV every 6 hours
Continue with metronidazole for today.
Gram-positive cocci noted on Gram stain. Will add empiric vancomycin pending further culture data.
Follow Vanco levels closely to prevent nephrotoxicity
Follow white count and temperature curve.
Follow drain output
Further recommendations as additional data is returned.
--- NOTE | 2025-01-08 16:01 | PHA.VAN.IN ---
Assessment
- Assessment
Renal Function: Appears similar to baseline
Concomitant Antimicrobials: cefepime, metronidazole
AUC Dosing Plan
- Dosing Variables
Dosing Weight (kg): 66.4
Dosing CrCl (ml/min): 110
Vd coefficient (L/kg): 0.7
- Empiric Dosing
Initial / Loading Dose: vanc 1500mg administered 01/08 @ 0019
Maintenance Regimen: vanc 1000mg Q12H
Estimated AUC (mcg*h/mL): 471
Estimated Peak (mcg*h/mL): 31.5
Estimated Trough (mcg/ml): 11
Estimated Half Life (H): 7.2
- Monitoring
No levels ordered at this time: consider levels in next few days
Pharmacokinetics Vancomycin I
- -
Patient Age: 64
Patient Sex: Male
Vancomycin Day #: 1
Indication: Pulmonary/Respiratory
Requesting Provider: Dr. Flores
Pertinent Antimicrobial Allergies:
no pertinent antimicrobial allergies
Height / Weight:
Height 5 ft 5 in
Actual Weight 66.4 kg
- Vital Signs / Lab Results
Temp Pulse Resp BP Pulse Ox
98.2 F 87 11 113/67 99
01/08/25 14:40 01/08/25 14:45 01/08/25 14:45 01/08/25 14:45 01/08/25 14:45
Lab Results - Hematology
01/07/25 01/08/25 01/08/25
22:16 03:58 14:08
WBC 16.5 H 14.4 H 15.3 H
Lab Results - Chemistry
01/07/25 01/08/25 01/08/25
22:16 03:58 14:08
BUN 8 L 7 L 7 L
Creatinine 0.6 L 0.6 L 0.5 L
Estimated Creat Clear 110 110
Albumin 4.6 3.4 L
01/07/25 01/08/25
22:16 02:15
Lactic Acid 1.3 Cancelled
Microbiology Results
01/08/25 11:20 Gram Stain - Preliminary
Abscess
01/08/25 01:40 Gram Stain - Preliminary
Abscess
[2025-01-08] MEDS: VANCOCIN 200 IV (17:00)
[2025-01-08] MEDS: MAXIPIME 1000 MG IV ×2 (17:00→21:12)
[2025-01-08] MEDS: CALCIUM GLUCONATE 100 IV (17:08)
[2025-01-08] MEDS: TYLENOL 650 MG PO (17:09)
--- NOTE | 2025-01-08 17:52 | PTCARENOTE ---
Pt arrived post op approx 1515. L neck aquacell drsg intact, sm old blood tomas noted. Ice pack to left neck. L upper inner leg drsg dy and intact from harvested greater saphenous vein. L neck with sm vac drain, with 20 ml of bloody drainage emptied.
+ palp L DP pulse intact. HR SR as per monitor. BP =141/79, goal to keep SBP 100-165. Seq compression teds applied. Pt oriented x3, RENU boyle. Pt ate liq diet, resting now on bedrest tonight.
--- NOTE | 2025-01-08 20:36 | PTCARENOTE ---
Received patient AAOx3, following commands, denying pain. Q1 hour neurocheck and Q2 vascular checks ongoing. NS 80s, BP 140s/60s, normothermic. Palpable radial and pedal pulses b/l. 96% on room air, lung sounds clear throughout. Abdomen soft, round,
nontender, positive bowel sounds. Urinal to void, putting out clear yellow urine. Left neck aquacell CDI with some old scant drainage, EMILY putting out small amount of sanguineous drainage. Left groin aquacell CDI. PIVs patent, WNL, NSS ongoing per
order. Right radial adria zeroed, leveled, and flushed. Water and fresh ice pack given. Plan of care discussed, call rangel within reach.
[2025-01-09] VITALS (12 sets, daily range): BP systolic 113–169; BP diastolic 65–86; BMI 24.2
--- NOTE | 2025-01-09 00:38 | PTCARENOTE ---
Patient assessment unchanged from previous, hourly rounding and patient safety checks ongoing. Call rangel within reach.
[2025-01-09 04:16] LABS: % Basophils 0.1 % (0-2); % Immature Granulocytes 0.3 % (0-0.5); % Monocytes 5.3 % (1.7-9.3); % Neutrophils 83.3 % (42.2-75.2); Absolute Lymphocytes 1.3 10^3/uL (1.2-3.4); Absolute Monocytes 0.6 10^3/uL (0.1-0.6); Hematocrit 31.4 % (39.0-52.0); Hemoglobin 10.7 g/dL (13.0-18.0); Mean Corp Hgb Conc. 34.1 g/dL (33.0-37.0); Mean Corpuscular Hgb 30.3 pg (27.0-31.0); Mean Platelet Volume 9.3 fL (7.4-10.4); Nucleated Red Blood Cells % 0 % (-); Platelet Count 275 10^3/uL (130-400); Red Blood Cell Count 3.53 10^6/uL (4.70-6.10); Red Cell Dist. Width 12.7 % (11.5-14.5)
[2025-01-09 04:25] LABS: INR 1.28; PT 16.3 Sec (11.4-14.6)
[2025-01-09 04:26] LABS: APTT 31.7 Sec (23.4-35.0)
--- NOTE | 2025-01-09 04:41 | PTCARENOTE ---
Patient assessment unchanged from previous, labs sent, call rangel within reach.
[2025-01-09 04:46] LABS: ALT (SGPT) 131 U/L (0-50); AST (SGOT) 92 U/L (17-59); Albumin 3.3 g/dl (3.5-5.0); Alkaline Phosphatase 97 U/L (38-126); Blood Urea Nitrogen 5 mg/dl (9-20); Calcium 8.5 mg/dl (8.4-10.2); Carbon Dioxide 24 mmol/L (22-30); Chloride 110 mmol/L (98-107); Estimated Creatinine Clearance 110 ml/min; Glucose 129 mg/dl (70-99); Potassium 3.6 mmol/L (3.5-5.1); Sodium 140 mmol/L (135-145); Total Bilirubin 0.6 mg/dl (0.2-1.3); Total Protein 6.3 g/dl (6.3-8.2); eGFR > 60.00
[2025-01-09] MEDS: NSS 1000 IV (05:14)
[2025-01-09] MEDS: MAXIPIME 1000 MG IV ×4 (05:34→22:11)
[2025-01-09] MEDS: VANCOCIN 200 IV ×2 (05:34→17:34)
[2025-01-09] MEDS: STERILE WATER FOR INJECTION 10 ML IV ×4 (05:34→22:11)
--- NOTE | 2025-01-09 07:40 | PHA.VAN.FU ---
Vancomycin Assessment / Plan
- Assessment
Renal Function: Stable
WBC's are: Trending Down
In the past 24 hrs, patient has been: Afebrile
Concomitant Antimicrobials: cefepime, metronidazole
- Dosing Plan
Continue: Vanc 1000mg Q12H
- Monitoring Plan
No level(s) ordered at this time: consider levels in next few days
- Follow Up
Pharmacy will continue to follow.
Vancomycin Follow UP
- -
Patient Age: 64
Patient Sex: Male
Vancomycin Day #: 2
Indication: Pulmonary/Respiratory
Requesting Provider: Dr. Flores
Pertinent Antimicrobial Allergies:
no pertinent antimicrobial allergies
Height / Weight:
Height 5 ft 5 in
Actual Weight 66.1 kg
- Vital Signs / Lab Results
Temp Pulse Resp BP Pulse Ox
98.5 F 82 17 159/86 98
01/09/25 07:00 01/09/25 06:00 01/09/25 06:00 01/09/25 06:00 01/09/25 06:00
Lab Results - Hematology
01/07/25 01/08/25 01/08/25
22:16 03:58 14:08
WBC 16.5 H 14.4 H 15.3 H
01/09/25
04:08
WBC 12.0 H
Lab Results - Chemistry
01/07/25 01/08/25 01/08/25
22:16 03:58 14:08
BUN 8 L 7 L 7 L
Creatinine 0.6 L 0.6 L 0.5 L
Estimated Creat Clear 110 110
Albumin 4.6 3.4 L
01/09/25
04:08
BUN 5 L
Creatinine 0.5 L
Estimated Creat Clear 110
Albumin 3.3 L
01/07/25 01/08/25
22:16 02:15
Lactic Acid 1.3 Cancelled
Microbiology Results
01/07/25 22:16 Blood Culture - Preliminary
Blood/Venous No Growth in 24 hours- Final report to follow
01/07/25 22:16 Blood Culture - Preliminary
Blood/Venous No Growth in 24 hours- Final report to follow
01/08/25 11:20 Gram Stain - Preliminary
Abscess
01/08/25 01:40 Gram Stain - Preliminary
Abscess
--- NOTE | 2025-01-09 08:23 | W.PN.INTV ---
Today's Communication / Plan
Recommendations
Pain control
Antibiotics per ID
Maintain MAP 70�100
Continue neurovascular checks per vascular surgery
Encourage incentive spirometer use, as tolerated given patient's postoperative pain
Follow-up intraoperative cultures + pathology
Case reviewed with vascular surgery and Dr. Miller is okay with downgrade out of ICU to telemetry. No additional recommendations at this time. [employer] Operator pulmonary service will now sign off. Please reconsult if there are any additional
questions/concerns, or if patient's respiratory status deteriorates.
Assessment
-
Assessment: 64-year-old male with a past medical history of PAD, left carotid artery stenosis s/p CEA (12/08/2024), history of syncope, former alcoholic, currently sober, and AAA who presents with left neck swelling near his jaw/throat. Also has
pain in that region but no difficulty breathing or swallowing. on 12/08/2024 he had a left-sided cEA with patch angioplasty with bovine pericardium for asymptomatic high-grade carotid stenosis. Patient was seen by vascular surgery on 12/21/2024, and
he was doing well at that time with no fevers, chills, and incision site looked well with signs of healing and no signs or symptoms of infection or hematoma or pseudoaneurysm. He then started to develop left-sided jaw/throat pain and swelling x 4
days. The swelling has steadily increased in size since this past Saturday (01/04/2025). In the ER he was afebrile to 98.2 �F, pulse rate 100, respiratory rate 20, BP 162/80 and saturating 98% on room air. Labs showed leukocytosis to 16.5, blood
cultures were collected, and CTA neck showed a large 7.5 cm complex rim-enhancing multiseptated fluid collection on the left side of his neck. Vascular surgery was consulted, and saw that the left neck incision was draining purulent fluid. Patient
was consented to the OR for neck exploration. On 01/08/2025, the patient underwent a left neck exploration and washout with excision of his previous bovine patch with a redo patch angioplasty using his left GSV. There were no complications, and the
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
Impression:
#Surgical site infection involving recent CEA site of left neck s/p left neck exploration and washout with excision of bovine patch and redo patch angioplasty using left great saphenous vein (POD #1)
#Leukocytosis due to above
#Acute anemia
#Metabolic acidosis (mild) with preserved anion gap -acidosis now resolved
#Transaminitis
#PAD
#AAA
#Carotid artery stenosis s/p left CEA (12/08/2024)
#History of alcohol abuse (currently sober)
#Right-sided internal carotid artery disease with 50-70% stenosis in the intracranial component
#Large multilevel disc�osteophyte complexes with severe facet joint arthrosis in the C-spine causing moderate spinal cord compression, central canal stenosis and severe neural foraminal narrowing - this is likely due to osteoarthritis
Plan:
Postoperative surgical intensive care unit monitoring
Supplemental oxygen as needed to maintain SpO2 >90-94%
prn nebulized bronchodilators - not currently bronchospastic
Incentive spirometry encouraged 10x per hour for at least 4 hrs a day
Aspiration precautions
Pain control
Infectious disease consulted - defer antibiotics to them
Continue with cefepime
Follow-up intraoperative wound culture as well as blood cultures x 2 collected 01/07/2025
Follow-up intraoperative pathology as well (pending as of today)
Neuro and vascular checks per protocol
Maintain MAP>65
Replete electrolytes with K>4, Mg>2
Maintain euglycemia with goal BG 140-180
Vascular surgery following-correspondence and operative notes reviewed
Transfuse blood products as needed to keep Hb>7g/dL, and plt>50k (given post-operative status)
DVT prophylaxis: HSQ
Early nutrition
Early mobilization
He will need to continue outpatient follow-up with Dr. Miller s/p discharge
Case reviewed with vascular surgery and Dr. Miller is okay with downgrade out of ICU to telemetry. No additional recommendations at this time. [employer] Operator pulmonary service will now sign off. Thank you for allowing us to be involved in the care of
this patient. Please reconsult if there are any additional questions/concerns, or if patient's respiratory status deteriorates.
Data:
CTA neck with/without IV contrast 01/07/2025:
1. LARGE 7.5 cm COMPLEX RIM-ENHANCING MULTISEPTATED FLUID COLLECTION in the left side of the neck in the left carotid and masticators spaces surrounding the left carotid arteries and extending into the left parotid gland and overlying subcutaneous
fat. Diagnostic possibilities are (1) a LARGE ABSCESS or (2) a large expansile liquefied hematoma.
2. Recent left carotid endarterectomy and patch angioplasty.
3. Less than 50% diameter stenosis in the proximal right internal carotid artery.
4. 50-70% diameter stenosis in the intracranial right internal carotid artery.
5. Large multilevel disc-osteophyte complexes and severe facet joint arthrosis in the cervical spine causing moderate multilevel spinal cord compression, moderate central canal stenosis, and severe neural foraminal narrowing.
Total time spent today was 58 minutes for this encounter. Time includes reviewing laboratory test/imaging results, reviewing pertinent medical records, obtaining and reviewing medical history, performing an appropriate exam, ordering medications,
tests and procedures. Time also includes documentation of this encounter, coordinating patient care and communicating with other healthcare professionals. Total time does not include separately billed tests performed on this date of service.
Subjective Dataa
Subjective Data
Date of Service:
Date of Service: January 09, 2025
Chief Complaint: Sewage Treatment Plant Operator Follow Up
Subjective:
Patient seen earlier this morning. Heart rate 86, BP 142/77. Currently on room air breathing comfortably. He is on the phone in no acute distress. Denies chest pain, BOONE, nausea, fevers or chills.
Review of Systems
General: Other (Negative unless mentioned above)
Objective Data
Data Reviewed
Vital Signs / I&O / Oxygen:
Vital Signs
Temp Pulse Resp BP Pulse Ox
98.5 F 81 15 139/66 97
01/09/25 07:00 01/09/25 10:00 01/09/25 10:00 01/09/25 10:00 01/09/25 10:00
Intake and Output
01/08/25 01/09/25 01/10/25
06:59 06:59 06:59
Intake Total 2540 / 2540 260 / 260
Output Total 5720 / 5720 500 / 500
Balance -3180 / -3180 -240 / -240
SaO2 97
Physical Exam
General: Respiratory Distress (negative), Comfortable, Chills (negative) and Sweats (negative)
HEENT: Anicteric and Other (Bandage on left anterior neck with tenderness to palpation)
Cardiovascular: S1-S2 and Peripheral Edema (negative)
Respiratory: Clear, Wheeze (negative), Crackles (negative), Rhonchi (negative) and Non-Labored Respirations
GI: Soft, Non Distended, Non Tender and Normal Bowel Sounds
Neurology: AO x 3 and Tremors (negative)
Skin: Warm, Dry, Cyanosis (negative) and Jaundice (negative)
Labs/Micro/Reports
Lab Data
01/09/25 04:08
01/09/25 04:08
Laboratory Results
01/08/25 01/09/25
14:08 04:08
PT 17.0 H 16.3 H
INR 1.36 1.28
APTT 34.3 31.7
Microbiology
01/07/25 22:16 Blood/Venous Blood Culture - Preliminary
No Growth in 24 hours- Final report to follow
01/07/25 22:16 Blood/Venous Blood Culture - Preliminary
No Growth in 24 hours- Final report to follow
01/08/25 11:20 Abscess Gram Stain - Preliminary
01/08/25 01:40 Abscess Gram Stain - Preliminary
--- NOTE | 2025-01-09 08:29 | W.PN.VS ---
Today's Communication / Plan
-
POD#1 left neck exploration/washout; removal of infected bovine patch and redo patch angioplasty with left GSV
-ABX
-F/U on intraop cultures
-Appreciate ID input
-Keep EMILY to bulb suction
-DC Britni
-OK for OOB, ambulate
-Advance diet as tolerated
Assessment/Plan
-
POD#1 left neck exploration/washout; removal of infected bovine patch and redo patch angioplasty with left GSV
-ABX
-F/U on intraop cultures
-Appreciate ID input
-Keep EMILY to bulb suction
-DC Britni
-OK for OOB, ambulate
-Advance diet as tolerated
Subjective Data
-
Date of Service: January 09, 2025
Pt resting comfortably
Easily arousable from sleep
Oriented
No complaints
Objective Data
-
Vital Signs
Temp Pulse Resp BP Pulse Ox
98.5 F 68 11 123/66 97
01/09/25 07:00 01/09/25 08:00 01/09/25 08:00 01/09/25 08:00 01/09/25 08:00
Intake and Output
01/08/25 01/09/25 01/10/25
06:59 06:59 06:59
Intake Total 2540 / 2540
Output Total 5720 / 5720
Balance -3180 / -3180
Intake:
Oral fluids 520 / 520
IV fluids (Total) 1320 / 1320
Nss 1,000 ml @ 80 mls/hr IV . 1220 / 1220
[id number] PAULINO Rx#:[id number]
normosol 100 / 100
IV piggybacks 700 / 700
Output:
Drain Output (Total) 45 / 45
Left Neck Lei-Carrillo 45
Urine, Miller 1000 / 1000
Urine, Voided 4675 / 4675
Lab Results
01/09/25 04:08
01/09/25 04:08
Calcium 8.5 mg/dl (8.4-10.2) 01/09/25 04:08
Total Bilirubin 0.6 mg/dl (0.2-1.3) 01/09/25 04:08
Direct Bilirubin 0.2 mg/dl (0.0-0.4) 01/08/25 03:58
AST 92 U/L (17-59) H 01/09/25 04:08
ALT 131 U/L (0-50) H 01/09/25 04:08
Alkaline Phosphatase 97 U/L (38-126) 01/09/25 04:08
Total Protein 6.3 g/dl (6.3-8.2) 01/09/25 04:08
Albumin 3.3 g/dl (3.5-5.0) L 01/09/25 04:08
Physical Exam
-
Alert/oriented
Non toxic appearing
Non labored breathing
Left neck dressing clean/dry
EMILY serosang
Left thigh dressing intact
[2025-01-09] MEDS: FLAGYL 500 MG 100 IV ×3 (09:13→23:31)
--- NOTE | 2025-01-09 11:28 | PTCARENOTE ---
Patient advanced to cholesterol lowering diet, a-line removed per order, pt expressed interest in getting out of bed to walk unit later. Pt also got abd US performed this am at bedside. Pt denies pain, surgical dressing intact with contained
drainage, see MAR/flowsheets for further care details.
--- NOTE | 2025-01-09 11:39 | W.PN.ID1 ---
Date of Service
Date of Service: January 09, 2025
Today's Communication
Continue abx's.
Assessment / Plan
Left neck abscess s/p I+D 01/08
S/p recent left CEA
Leukocytosis
ASCVD
Carotid stenosis
HTN
AAA
Recommendations:
Continue with Vanco, cefepime, metronidazole pending culture data.
Follow Vanco levels closely to prevent nephrotoxicity
Follow white count and temperature curve.
Follow drain output
Chief Complaint
-: Other (CEA site infection)
Subjective / Review of Systems
C/o hungry due to NPO for study.
Vital Signs / Physical Exam
Vital Signs
Vital Signs
Temp Pulse Resp BP Pulse Ox
98.5 F 81 15 139/66 97
01/09/25 07:00 01/09/25 10:00 01/09/25 10:00 01/09/25 10:00 01/09/25 10:00
Physical Exam
Constitutional: No Acute Distress and Comfortable
Cardiovascular: Regular Rate and S1/S2
Pulmonary: Clear
Gastrointestinal: Soft, Non Tender and Non Distended
Extremities: Negative Edema
Wound: Other (Left neck dressing dry)
Neurological: AO x 3
Objective Data
Lab Data
Lab Results
01/09/25 04:08
01/09/25 04:08
PT 16.3 Sec (11.4-14.6) H 01/09/25 04:08
INR 1.28 01/09/25 04:08
APTT 31.7 Sec (23.4-35.0) 01/09/25 04:08
Estimated Creat Clear 110 ml/min 01/09/25 04:08
Lactic Acid Cancelled 01/08/25 02:15
Total Bilirubin 0.6 mg/dl (0.2-1.3) 01/09/25 04:08
AST 92 U/L (17-59) H 01/09/25 04:08
ALT 131 U/L (0-50) H 01/09/25 04:08
Alkaline Phosphatase 97 U/L (38-126) 01/09/25 04:08
Most recent labs reviewed.
Micro Results:
01/07/25 22:16 Blood Culture - Preliminary
Blood/Venous No Growth in 24 hours- Final report to follow
01/07/25 22:16 Blood Culture - Preliminary
Blood/Venous No Growth in 24 hours- Final report to follow
01/08/25 11:20 Wound Culture - Pending
Abscess Gram Stain - Preliminary
01/08/25 01:40 Wound Culture - Pending
Abscess Gram Stain - Preliminary
01/08/25 11:20 Anaerobic Culture - Pending
Abscess
Imaging:
01/07/2025 CT neck with angio: A large 7.5 cm complex rim-enhancing multiseptated fluid collection is noted in the left side of the neck in the left carotid and lamp cleaner street light spaces surrounding the left carotid artery and extending into the left parotid
gland with overlying subcutaneous fat. Please see full dictation for additional detail. Film personally viewed.
--- NOTE | 2025-01-09 11:48 | CM ---
CM attempted bedside visit but sleeping soundly
Chart reviewed completed as pt with recent admission
Pt admitted to [facility] from 12/08 -12/09 for L. carotid endarterectomy
Pt [place] alone in a [place]
He is typically indep with his ADLs, no DMEs
Pt receives care through [facility] and has no insurance
He is originally from [facility] and will close family/friends through alevism in the area
PCP- [facility]
Rx- [facility] [place]
Discharge Disposition- anticipate home no needs, watch for abx needs
[2025-01-09] MEDS: NSS IV (12:43)
--- NOTE | 2025-01-09 13:02 | W.PN.HOSP.TC ---
Today's Communication/Plan
-
cont Abx pending Cx
Assessment / Plan
Assessment / Plan
64yo M with PMHx of HTN, ACSVD, disiness, carotid stenosis s/p CEA L on 12/08/24 came with worsening L neck swelling noticed for past 5 days with purulent drainage, found loculated abscess on L surrounding common carotid and origin of L carotid
A/P
#L neck abscess, most likely related to recent L CEA
LEFT carotid endarterectomy with patch angioplasty using bovine pericardium on 12/08/24
ID consult
VascSx did Left neck exploration and washout Excision of bovine patch and redo patch angioplasty with left great saphenous vein [place] of left great saphenous vein for carotid patch angioplasty on 01/08/25
Vanco/Cefepime, Flagyl (MRSA/Pseudomonas and gram neg coverage needed)
Follow postOP and Bcx
#Transaminitis
#Hx of alcohol abuse
follow LFT
patient did not consume alcohol for >1 year
US RUQ with liver cirrhosis
hepatitis panel: immune to HepB
Outpatient GI
Patient currently sober for past year - counseled on maintenance
#Hx of smoking
NicoDerm PRN
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
No overt neurological deficit
tylenol
PT/OT
#ACSVD
#HLD
#essential HTN
cont home meds
DVT ppx Hep
Full code
I have spent at least 56min reviewing chart, test results, communication with consultants and providing direct patient care
Anticipated Discharge: > 48 hours
Subjective/Interval History
-
Date of Service: January 09, 2025
Objective Data
-
Labs:
Laboratory Results
01/09/25
04:08
WBC 12.0 H
Hgb 10.7 L
Hct 31.4 L
Plt Count 275
PT 16.3 H
INR 1.28
APTT 31.7
Sodium 140
Potassium 3.6
Chloride 110 H
Carbon Dioxide 24
BUN 5 L
Creatinine 0.5 L
Glucose 129 H
Calcium 8.5
Total Bilirubin 0.6
AST 92 H
ALT 131 H
Alkaline Phosphatase 97
Vital Signs:
Vital Signs
Temp Pulse Resp BP Pulse Ox
98.6 F 81 15 139/66 97
01/09/25 11:00 01/09/25 10:00 01/09/25 10:00 01/09/25 10:00 01/09/25 10:00
I&O
01/08/25 01/09/25 01/10/25
06:59 06:59 06:59
Intake Total 2540 / 2540 740 / 740
Output Total 5720 / 5720 500 / 500
Balance -3180 / -3180 240 / 240
Review of Systems
-
History Source: Patient
All other systems: Reviewed and negative
Physical Exam
-
General: No Apparent Distress
Neuro: Awake, Alert, Oriented and AO x 3
Psych: Calm
[2025-01-09] MEDS: HEPARIN 5000 UNITS SC ×2 (16:17→23:32)
--- NOTE | 2025-01-09 21:50 | PTCARENOTE ---
Pt received from previous shift in bed. AAOx3, pleasant. Telemetry = SR. Full physical assessment documented (refer to worklist). L neck EMILY drain to suction, serosang drainage. L neck dressing w/old drainage. L groin dressing c/d/i, ecchymosis
to thigh observed. PIVs flushed and patent. NV and neuro checks WNL. Call claire w/in reach.
[2025-01-10] VITALS (10 sets, daily range): BP systolic 124–145; BP diastolic 65–87; BMI 23.6
[2025-01-10] MEDS: VANCOCIN 200 IV ×2 (04:59→18:01)
[2025-01-10] MEDS: MAXIPIME 1000 MG IV ×4 (04:59→22:27)
[2025-01-10] MEDS: STERILE WATER FOR INJECTION 10 ML IV ×4 (04:59→22:27)
[2025-01-10 05:54] LABS: % Basophils 0.3 % (0-2); % Eosinophils 1.2 % (0-6); % Immature Granulocytes 0.4 % (0-0.5); % Lymphocytes 32.8 % (20.5-51.1); % Monocytes 5.3 % (1.7-9.3); Absolute Eosinophils 0.1 10^3/uL (0-0.7); Absolute Lymphocytes 3.2 10^3/uL (1.2-3.4); Absolute Monocytes 0.5 10^3/uL (0.1-0.6); Absolute Neutrophils 5.8 10^3/uL (1.4-6.5); Hematocrit 32.9 % (39.0-52.0); Hemoglobin 11.2 g/dL (13.0-18.0); Mean Corpuscular Hgb 30.5 pg (27.0-31.0); Mean Corpuscular Volume 89.6 fL (80.0-94.0); Mean Platelet Volume 9.5 fL (7.4-10.4); Nucleated Red Blood Cells % 0 % (-); Platelet Count 319 10^3/uL (130-400); Red Blood Cell Count 3.67 10^6/uL (4.70-6.10); Red Cell Dist. Width 12.6 % (11.5-14.5); White Blood Cell Count 9.7 10^3/uL (4.8-10.8)
[2025-01-10 06:19] LABS: ALT (SGPT) 142 U/L (0-50); AST (SGOT) 79 U/L (17-59); Albumin 3.5 g/dl (3.5-5.0); Alkaline Phosphatase 91 U/L (38-126); Blood Urea Nitrogen 11 mg/dl (9-20); Calcium 8.8 mg/dl (8.4-10.2); Carbon Dioxide 26 mmol/L (22-30); Chloride 109 mmol/L (98-107); Estimated Creatinine Clearance 110 ml/min; Glucose 109 mg/dl (70-99); Magnesium 2.3 mg/dl (1.6-2.3); Phosphorus 3.2 mg/dl (2.5-4.5); Potassium 3.9 mmol/L (3.5-5.1); Sodium 141 mmol/L (135-145); Total Bilirubin 0.4 mg/dl (0.2-1.3); Total Protein 6.7 g/dl (6.3-8.2); eGFR > 60.00
--- NOTE | 2025-01-10 07:06 | W.PN.UPDATE ---
Update Note
Progress Note Update
Comfortable in bed
No events overnight
No complaints
NAD
Non labored breathing
Left neck incision clean/dry/flat
EMILY serosang, min output
Left thigh incision clean/dry
F/U Cx's
IV ABX
Reg diet
OOB ambulate
Home meds/antiplatelet
Keep EMILY for now
PJF3
Vascular Surgery
--- NOTE | 2025-01-10 07:14 | PHA.VAN.FU ---
Vancomycin Assessment / Plan
- Assessment
Renal Function: Stable
WBC's are: WNL
In the past 24 hrs, patient has been: Afebrile
Concomitant Antimicrobials: cefepime, metronidazole
- Dosing Plan
Continue: Vanc 1000mg Q12H
- Monitoring Plan
Peak Level: 01/10 2100
Trough Level: 01/11 0530
Monitoring Comments: levels to be drawn after 5th maintenance dose
- Follow Up
Pharmacy will continue to follow.
Vancomycin Follow UP
- -
Patient Age: 64
Patient Sex: Male
Vancomycin Day #: 3
Indication: Pulmonary/Respiratory
Requesting Provider: Dr. Flores
Pertinent Antimicrobial Allergies:
no pertinent antimicrobial allergies
Height / Weight:
Height 5 ft 5 in
Actual Weight 64.4 kg
- Vital Signs / Lab Results
Temp Pulse Resp BP Pulse Ox
98.4 F 70 16 141/76 98
01/10/25 03:00 01/10/25 06:00 01/09/25 19:01 01/10/25 06:00 01/09/25 19:01
Lab Results - Hematology
01/07/25 01/08/25 01/08/25
22:16 03:58 14:08
WBC 16.5 H 14.4 H 15.3 H
01/09/25 01/10/25
04:08 05:15
WBC 12.0 H 9.7
Lab Results - Chemistry
01/07/25 01/08/25 01/08/25
22:16 03:58 14:08
BUN 8 L 7 L 7 L
Creatinine 0.6 L 0.6 L 0.5 L
Estimated Creat Clear 110 110
Albumin 4.6 3.4 L
01/09/25 01/10/25
04:08 05:15
BUN 5 L 11
Creatinine 0.5 L 0.6 L
Estimated Creat Clear 110 110
Albumin 3.3 L 3.5
01/07/25 01/08/25
22:16 02:15
Lactic Acid 1.3 Cancelled
Microbiology Results
01/07/25 22:16 Blood Culture - Preliminary
Blood/Venous No Growth in 48 hours- Final report to follow
01/07/25 22:16 Blood Culture - Preliminary
Blood/Venous No Growth in 48 hours- Final report to follow
01/08/25 01:40 Wound Culture - Preliminary
Abscess Gram Stain - Preliminary
01/08/25 11:20 Anaerobic Culture - Preliminary
Abscess Culture pending. Anaerobic cultures are examined after 3
days incubation. Additional information to follow.
01/08/25 11:20 Wound Culture - Preliminary
Abscess No growth
Gram Stain - Preliminary
[2025-01-10] MEDS: FLAGYL 500 MG 100 IV ×2 (08:22→15:25)
[2025-01-10] MEDS: HEPARIN 5000 UNITS SC ×2 (08:23→15:26)
--- NOTE | 2025-01-10 09:36 | PTCARENOTE ---
Patient remains on telemetry in NS[facility], continues IV abx, surgical dressings removed by Dr Miller on rounds. EMILY drain still to bulb suction. RN forwarded message from Dr. Miller to hospitalist about patient needing to be on daily aspirin.
--- NOTE | 2025-01-10 09:58 | W.PN.HOSP.TC ---
Today's Communication/Plan
-
cont abd pending Cx
start ASA
Assessment / Plan
Assessment / Plan
64yo M with PMHx of HTN, ACSVD, disiness, carotid stenosis s/p CEA L on 12/08/24 came with worsening L neck swelling noticed for past 5 days with purulent drainage, found loculated abscess on L surrounding common carotid and origin of L carotid
A/P
#L neck abscess, most likely related to recent L CEA
LEFT carotid endarterectomy with patch angioplasty using bovine pericardium on 12/08/24
ID consult
VascSx did Left neck exploration and washout Excision of bovine patch and redo patch angioplasty with left great saphenous vein [place] of left great saphenous vein for carotid patch angioplasty on 01/08/25
Vanco/Cefepime, Flagyl (MRSA/Pseudomonas and gram neg coverage needed)
Follow postOP and Bcx -NTD
ASA daily
#Transaminitis
#Hx of alcohol abuse
follow LFT
patient did not consume alcohol for >1 year
US RUQ with liver cirrhosis
hepatitis panel: immune to HepB
Outpatient GI
Patient currently sober for past year - counseled on maintenance
#Hx of smoking
NicoDerm PRN
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
No overt neurological deficit
tylenol
PT/OT
#ACSVD
#HLD
#essential HTN
cont home meds
DVT ppx Hep
Full code
I have spent at least 36min reviewing chart, test results, communication with consultants and providing direct patient care
Anticipated Discharge: 24 - 48 hours
Subjective/Interval History
-
Date of Service: January 10, 2025
Objective Data
-
Labs:
Laboratory Results
01/10/25
05:15
WBC 9.7
Hgb 11.2 L
Hct 32.9 L
Plt Count 319
Sodium 141
Potassium 3.9
Chloride 109 H
Carbon Dioxide 26
BUN 11
Creatinine 0.6 L
Glucose 109 H
Calcium 8.8
Total Bilirubin 0.4
AST 79 H
ALT 142 H
Alkaline Phosphatase 91
Vital Signs:
Vital Signs
Temp Pulse Resp BP Pulse Ox
98.4 F 68 16 124/87 99
01/10/25 07:23 01/10/25 07:23 01/10/25 07:23 01/10/25 07:23 01/10/25 07:23
I&O
01/09/25 01/10/25 01/11/25
06:59 06:59 06:59
Intake Total 2540 / 2540 2099 / 2099
Output Total 5720 / 5720 3733 / 3733
Balance -3180 / -3180 -1633 / -1633
Review of Systems
-
History Source: Patient
All other systems: Reviewed and negative
Physical Exam
-
General: No Apparent Distress
HEENT: Other (healin L neck scar with EMILY drain with serosanguinous fluid)
Respiratory: Clear to Auscultation
GI: Soft, Nontender and Nondistended
Musculoskeletal: No Clubbing, No Cyanosis and No Edema
Psych: Calm
--- NOTE | 2025-01-10 10:15 | W.PN.ID1 ---
Date of Service
Date of Service: January 10, 2025
Today's Communication
Awaiting cx results.
Assessment / Plan
Left neck abscess s/p I+D 01/08
S/p recent left CEA
Leukocytosis- resolved
ASCVD
Carotid stenosis
HTN
AAA
Recommendations:
Gram stain: GPC; Aerobic cx: neg to date. Anaerobic cx pending
Continue with Vanco, cefepime, metronidazole pending culture data.
Follow Vanco levels closely to prevent nephrotoxicity
Follow drain output
Chief Complaint
-: Other (CEA site infection)
Vital Signs / Physical Exam
Vital Signs
Vital Signs
Temp Pulse Resp BP Pulse Ox
98.4 F 68 16 124/87 99
01/10/25 07:23 01/10/25 07:23 01/10/25 07:23 01/10/25 07:23 01/10/25 07:23
Physical Exam
Constitutional: No Acute Distress and Comfortable
Cardiovascular: Regular Rate and S1/S2
Pulmonary: Clear
Gastrointestinal: Soft, Non Tender and Non Distended
Extremities: Negative Edema
Wound: Other (Left neck dressing dry)
Neurological: AO x 3
Objective Data
Lab Data
Lab Results
01/10/25 05:15
01/10/25 05:15
PT 16.3 Sec (11.4-14.6) H 01/09/25 04:08
INR 1.28 01/09/25 04:08
APTT 31.7 Sec (23.4-35.0) 01/09/25 04:08
Estimated Creat Clear 110 ml/min 01/10/25 05:15
Lactic Acid Cancelled 01/08/25 02:15
Total Bilirubin 0.4 mg/dl (0.2-1.3) 01/10/25 05:15
AST 79 U/L (17-59) H 01/10/25 05:15
ALT 142 U/L (0-50) H 01/10/25 05:15
Alkaline Phosphatase 91 U/L (38-126) 01/10/25 05:15
Most recent labs reviewed.
Micro Results:
01/07/25 22:16 Blood Culture - Preliminary
Blood/Venous No Growth in 48 hours- Final report to follow
01/07/25 22:16 Blood Culture - Preliminary
Blood/Venous No Growth in 48 hours- Final report to follow
01/08/25 01:40 Wound Culture - Preliminary
Abscess Gram Stain - Preliminary
01/08/25 11:20 Anaerobic Culture - Preliminary
Abscess Culture pending. Anaerobic cultures are examined after 3
days incubation. Additional information to follow.
01/08/25 11:20 Wound Culture - Preliminary
Abscess No growth
Gram Stain - Preliminary
Imaging:
01/07/2025 CT neck with angio: A large 7.5 cm complex rim-enhancing multiseptated fluid collection is noted in the left side of the neck in the left carotid and window installation subcontractor spaces surrounding the left carotid artery and extending into the left parotid
gland with overlying subcutaneous fat. Please see full dictation for additional detail. Film personally viewed.
[2025-01-10] MEDS: ASPIR LOW (ENTERIC COATED) 81 MG PO (10:30)
--- NOTE | 2025-01-10 12:45 | PTCARENOTE ---
Report called to receiving 2 enedina RN
[2025-01-11] MEDS: FLAGYL 500 MG 100 IV ×2 (00:25→08:36)
[2025-01-11] MEDS: HEPARIN 5000 UNITS SC ×3 (00:25→23:59)
[2025-01-11 03:08] VITALS: BP 121/64
[2025-01-11] MEDS: MAXIPIME 1000 MG IV ×2 (04:54→10:29)
[2025-01-11] MEDS: STERILE WATER FOR INJECTION 10 ML IV ×2 (04:55→10:29)
[2025-01-11 06:02] LABS: Vancomycin Trough 7.8 ug/ml (5-20)
[2025-01-11 06:15] LABS: Blood Urea Nitrogen 13 mg/dl (9-20); Calcium 8.8 mg/dl (8.4-10.2); Carbon Dioxide 25 mmol/L (22-30); Chloride 108 mmol/L (98-107); Estimated Creatinine Clearance 110 ml/min; Glucose 100 mg/dl (70-99); Potassium 4.4 mmol/L (3.5-5.1); Sodium 139 mmol/L (135-145); eGFR > 60.00
[2025-01-11] MEDS: VANCOCIN 200 IV (06:39)
[2025-01-11 07:28] VITALS: BP 128/66
--- NOTE | 2025-01-11 08:12 | PHA.VAN.FU ---
Vancomycin Assessment / Plan
- Assessment
Renal Function: Stable
WBC's are: Trending Down
In the past 24 hrs, patient has been: Afebrile
Concomitant Antimicrobials: Cefepime 1 gram IV q6h, Flagyl 500 mg IB BID
- Assessment - Therapeutic Drug Monitoring
Extrapolated Cmax (mcg/mL): 16.9
Peak level was drawn: Appropriately
Extrapolated Cmin (mcg/mL): 7.4
Trough Drawn: Appropriately
Levels were drawn: At steady state
Calculated AUC (mcg*h/mL): 278
Calculated ke: 0.0748
Calculated half life (H): 9.3
Calculated Vd (L): 96.20
Calculated Vanc CL (ml/min): 119.98
- Dosing Plan
Adjust Regimen to: Vancomycin 1500 mg IV q12h
New Regimen Predicts: AUC (440), Peak (26.3), Trough (12)
- Monitoring Plan
No level(s) ordered at this time: Consider level in a few days
- Follow Up
Pharmacy will continue to follow.
Vancomycin Follow UP
- -
Patient Age: 64
Patient Sex: Male
Vancomycin Day #: 4
Indication: Pulmonary/Respiratory
Requesting Provider: Dr. Flores
Pertinent Antimicrobial Allergies:
no pertinent antimicrobial allergies
Height / Weight:
Height 5 ft 5 in
Actual Weight 64.4 kg
- Vital Signs / Lab Results
Temp Pulse Resp BP Pulse Ox
98.1 F 62 16 128/66 99
01/11/25 07:28 01/11/25 07:28 01/11/25 07:28 01/11/25 07:28 01/11/25 07:28
Lab Results - Hematology
01/08/25 01/09/25 01/10/25
14:08 04:08 05:15
WBC 15.3 H 12.0 H 9.7
Lab Results - Chemistry
01/08/25 01/08/25 01/09/25
03:58 14:08 04:08
BUN 7 L 5 L
Creatinine 0.5 L 0.5 L
Estimated Creat Clear 110 110
Albumin 3.4 L 3.3 L
01/10/25 01/11/25
05:15 05:21
BUN 11 13
Creatinine 0.6 L 0.6 L
Estimated Creat Clear 110 110
Albumin 3.5
Microbiology Results
01/07/25 22:16 Blood Culture - Preliminary
Blood/Venous No Growth in 72 hours- Final report to follow
01/07/25 22:16 Blood Culture - Preliminary
Blood/Venous No Growth in 72 hours- Final report to follow
01/08/25 11:20 Wound Culture - Preliminary
Abscess Viridans Streptococcus Group
Gram Stain - Preliminary
01/08/25 01:40 Wound Culture - Final
Abscess Gram Stain - Final
01/08/25 11:20 Anaerobic Culture - Preliminary
Abscess Culture pending. Anaerobic cultures are examined after 3
days incubation. Additional information to follow.
Therapeutic Drug Monitoring
Vancomycin Peak 14.0 ug/ml (18-26) L 01/10/25 21:32
Vancomycin Trough 7.8 ug/ml (5-20) 01/11/25 05:21
[2025-01-11] MEDS: ASPIR LOW (ENTERIC COATED) 81 MG PO (08:36)
[2025-01-11 11:49] VITALS: BP 126/81
--- NOTE | 2025-01-11 12:45 | W.PN.UPDATE ---
Update Note
Progress Note Update
Comfortable in room
No complaints
EMILY output minimal serosang
NON toxic
Left neck incision clean/dry/flat
EMILY removed at bedside
F/U Cx results
ABX plan per ID
Daily wound care instructions, skin hygiene and facial hair maintenance reviewed with patient
Will followup with him in the office for suture removal
Call with questions/concerns
[id number]
Vascular Surgery
--- NOTE | 2025-01-11 13:34 | W.PN.ID1 ---
Date of Service
Date of Service: January 11, 2025
Today's Communication
Continue abx. See below...
Assessment / Plan
Left neck abscess s/p I+D 01/08
Cx's with Strep viridans
S/p recent left CEA
Leukocytosis- resolved
ASCVD
Carotid stenosis
HTN
AAA
Recommendations:
Drain has been removed.
Cultures reviewed and reveal only Strep viridans.
Narrow to cefazolin. At D/C, can transition to keflex 500 mg PO QID for an additional 10 days.
- Discussing with Vascular whether or not suppressive abx needed therafter.
Chief Complaint
-: Other (CEA site infection)
Subjective / Review of Systems
No pain
Review of Systems: No Fever and No Chills
Vital Signs / Physical Exam
Vital Signs
Vital Signs
Temp Pulse Resp BP Pulse Ox
98.3 F 71 16 126/81 100
01/11/25 11:49 01/11/25 11:49 01/11/25 11:49 01/11/25 11:49 01/11/25 11:49
Physical Exam
Constitutional: No Acute Distress and Comfortable
Cardiovascular: Regular Rate and S1/S2
Pulmonary: Clear
Gastrointestinal: Soft, Non Tender and Non Distended
Extremities: Negative Edema
Wound: Other (Left neck dressing dry. Sutures in place. Wound C/D/I. No drainage. minimal erythema.)
Neurological: Awake, Alert and AO x 3
Psychological: Calm
Objective Data
Lab Data
Lab Results
01/10/25 05:15
01/11/25 05:21
PT 16.3 Sec (11.4-14.6) H 01/09/25 04:08
INR 1.28 01/09/25 04:08
APTT 31.7 Sec (23.4-35.0) 01/09/25 04:08
Estimated Creat Clear 110 ml/min 01/11/25 05:21
Lactic Acid Cancelled 01/08/25 02:15
Total Bilirubin 0.4 mg/dl (0.2-1.3) 01/10/25 05:15
AST 79 U/L (17-59) H 01/10/25 05:15
ALT 142 U/L (0-50) H 01/10/25 05:15
Alkaline Phosphatase 91 U/L (38-126) 01/10/25 05:15
Most recent labs reviewed.
Micro Results:
01/08/25 11:20 Wound Culture - Preliminary
Abscess Viridans Streptococcus Group
Gram Stain - Preliminary
01/07/25 22:16 Blood Culture - Preliminary
Blood/Venous No Growth in 72 hours- Final report to follow
01/07/25 22:16 Blood Culture - Preliminary
Blood/Venous No Growth in 72 hours- Final report to follow
01/08/25 01:40 Wound Culture - Final
Abscess Gram Stain - Final
01/08/25 11:20 Anaerobic Culture - Preliminary
Abscess Culture pending. Anaerobic cultures are examined after 3
days incubation. Additional information to follow.
Imaging:
01/07/2025 CT neck with angio: A large 7.5 cm complex rim-enhancing multiseptated fluid collection is noted in the left side of the neck in the left carotid and procurement services manager spaces surrounding the left carotid artery and extending into the left parotid
gland with overlying subcutaneous fat. Please see full dictation for additional detail. Film personally viewed.
Care Review
Plan reviewed with: Physician (Vascular Sx)
[2025-01-11] MEDS: ANCEF 10 IV ×2 (14:28→21:35)
--- NOTE | 2025-01-11 14:52 | CM ---
Reviewed the chart notes. CM continues to be available to patient/family and is monitoring medical plan for needs at discharge.
Plan: Discharge to home when medically stable. Follow-up in [facility].
--- NOTE | 2025-01-11 14:57 | W.PN.HOSP.TC ---
Today's Communication/Plan
-
continue Abx per ID
Assessment / Plan
Assessment / Plan
64yo M with PMHx of HTN, ACSVD, disiness, carotid stenosis s/p CEA L on 12/08/24 came with worsening L neck swelling noticed for past 5 days with purulent drainage, found loculated abscess on L surrounding common carotid and origin of L carotid
Assessment:
L neck abscess, most likely related to recent LEFT carotid endarterectomy with patch angioplasty using bovine pericardium on 12/08/24
- s/p L neck washout, excision of bovine pericardial patch and redo patch angioplasty with saphenus vein 01/08. s/p EMILY drain.
- Daily wound care instructions, skin hygiene and facial hair maintenance
- continue Ancef per ID. Cultures growing Viridans strep
- continue ASA
Transaminitis
Hx of alcohol abuse
- follow LFT
- patient did not consume alcohol for >1 year
- US RUQ with liver cirrhosis
- hepatitis panel: immune to HepB
- Outpatient GI
- Patient currently sober for past year - counseled on maintenance
Hx of smoking
- NicoDerm PRN
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
- No overt neurological deficit
- Tylenol
- PT/OT
ACSVD
HLD
essential HTN
- cont home meds
DVT ppx: SC heparin
Code: Full
Anticipated Discharge: 24 - 48 hours
Subjective/Interval History
-
Date of Service: January 11, 2025
resting comfortably, no complaints at present
Objective Data
-
Labs:
Laboratory Results
01/11/25
05:21
Sodium 139
Potassium 4.4
Chloride 108 H
Carbon Dioxide 25
BUN 13
Creatinine 0.6 L
Glucose 100 H
Calcium 8.8
Vital Signs:
Vital Signs
Temp Pulse Resp BP Pulse Ox
98.3 F 71 16 126/81 100
01/11/25 11:49 01/11/25 11:49 01/11/25 11:49 01/11/25 11:49 01/11/25 11:49
I&O
01/10/25 01/11/25 01/12/25
06:59 06:59 06:59
Intake Total 2099 / 2099 850 / 850
Output Total 3733 / 3733
Balance -1633 / -1633 840 / 840
Physical Exam
-
General: No Apparent Distress
HEENT: Normocephalic and Atraumatic
Respiratory: Negative Wheezes
Cardiac: Regular Rhythm and S1/S2
GI: Soft and Nontender
Musculoskeletal: No Edema
Neuro: AO x 3
Hematologic / Lymphatic: No Lymphadenopathy
Psych: Calm
Data Reviewed
-
Total Time Spent with Patient (in minutes): 42
Labs: Labs Reviewed by me
[2025-01-11 15:50] VITALS: BP 143/71
[2025-01-11] MEDS: HEPARIN SC (16:41)
[2025-01-11] MEDS: VANCOCIN 530 MG IV (18:02)
[2025-01-11 19:00] VITALS: BP 145/75
[2025-01-11 23:00] VITALS: BP 132/69
[2025-01-12 02:52] VITALS: BP 118/65
[2025-01-12] MEDS: ANCEF 10 IV (05:14)
[2025-01-12] MEDS: VANCOCIN 530 MG IV (05:23)
[2025-01-12 06:08] LABS: Hematocrit 34.2 % (39.0-52.0); Hemoglobin 11.4 g/dL (13.0-18.0); Mean Corp Hgb Conc. 33.3 g/dL (33.0-37.0); Mean Corpuscular Hgb 29.9 pg (27.0-31.0); Mean Corpuscular Volume 89.8 fL (80.0-94.0); Mean Platelet Volume 9.2 fL (7.4-10.4); Platelet Count 368 10^3/uL (130-400); Red Blood Cell Count 3.81 10^6/uL (4.70-6.10); White Blood Cell Count 8.2 10^3/uL (4.8-10.8)
[2025-01-12 06:31] LABS: Blood Urea Nitrogen 12 mg/dl (9-20); Calcium 8.8 mg/dl (8.4-10.2); Carbon Dioxide 24 mmol/L (22-30); Chloride 107 mmol/L (98-107); Estimated Creatinine Clearance 110 ml/min; Glucose 108 mg/dl (70-99); Potassium 4.5 mmol/L (3.5-5.1); Sodium 139 mmol/L (135-145); eGFR > 60.00
[2025-01-12] MEDS: ASPIR LOW (ENTERIC COATED) 81 MG PO (07:47)
[2025-01-12] MEDS: HEPARIN 5000 UNITS SC (07:47)
--- NOTE | 2025-01-12 07:55 | PHA.VAN.FU ---
Vancomycin Assessment / Plan
- Assessment
Renal Function: Stable
WBC's are: WNL
In the past 24 hrs, patient has been: Afebrile
Concomitant Antimicrobials: Cefazolin 2 gram IV q8h
- Dosing Plan
Continue: Vancomycin 1500 mg IV q12h
- Monitoring Plan
No level(s) ordered at this time: Consider level in a few days
- Follow Up
Pharmacy will continue to follow.
Vancomycin Follow UP
- -
Patient Age: 64
Patient Sex: Male
Vancomycin Day #: 5
Indication: Pulmonary/Respiratory
Requesting Provider: Dr. Flores
Pertinent Antimicrobial Allergies:
no pertinent antimicrobial allergies
Height / Weight:
Height 5 ft 5 in
Actual Weight 64.4 kg
- Vital Signs / Lab Results
Temp Pulse Resp BP Pulse Ox
98.2 F 58 16 118/65 98
01/12/25 02:52 01/12/25 02:52 01/12/25 02:52 01/12/25 02:52 01/12/25 02:52
Lab Results - Hematology
01/10/25 01/12/25
05:15 05:21
WBC 9.7 8.2
Lab Results - Chemistry
01/10/25 01/11/25 01/12/25
05:15 05:21 05:21
BUN 11 13 12
Creatinine 0.6 L 0.6 L 0.6 L
Estimated Creat Clear 110 110 110
Albumin 3.5
Microbiology Results
01/07/25 22:16 Blood Culture - Preliminary
Blood/Venous No Growth in 4 days- Final report to follow
01/07/25 22:16 Blood Culture - Preliminary
Blood/Venous No Growth in 4 days- Final report to follow
01/08/25 11:20 Anaerobic Culture - Preliminary
Abscess Culture pending. Anaerobic cultures are examined after 3
days incubation. Additional information to follow.
01/08/25 11:20 Wound Culture - Preliminary
Abscess Viridans Streptococcus Group
Gram Stain - Preliminary
01/08/25 01:40 Wound Culture - Final
Abscess Gram Stain - Final
Therapeutic Drug Monitoring
Vancomycin Peak 14.0 ug/ml (18-26) L 01/10/25 21:32
Vancomycin Trough 7.8 ug/ml (5-20) 01/11/25 05:21
[2025-01-12 07:56] VITALS: BP 132/71
[2025-01-12 11:15] VITALS: BP 133/69
--- NOTE | 2025-01-12 11:21 | W.PN.HOSP.TC ---
Today's Communication/Plan
-
dc home
Assessment / Plan
Assessment / Plan
64yo M with PMHx of HTN, ACSVD, disiness, carotid stenosis s/p CEA L on 12/08/24 came with worsening L neck swelling noticed for past 5 days with purulent drainage, found loculated abscess on L surrounding common carotid and origin of L carotid
Assessment:
L neck abscess, most likely related to recent LEFT carotid endarterectomy with patch angioplasty using bovine pericardium on 12/08/24
- s/p L neck washout, excision of bovine pericardial patch and redo patch angioplasty with saphenus vein 01/08. s/p EMILY drain.
- Daily wound care instructions, skin hygiene and facial hair maintenance
- continue Ancef per ID. Cultures growing Viridans strep. transition to keflex 500 mg PO QID for an additional 10 days.
- continue ASA
Transaminitis
Hx of alcohol abuse
- follow LFT
- patient did not consume alcohol for >1 year
- US RUQ with liver cirrhosis
- hepatitis panel: immune to HepB
- Outpatient GI
- Patient currently sober for past year - counseled on maintenance
Hx of smoking
- NicoDerm PRN
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
- No overt neurological deficit
- Tylenol
- PT/OT
ACSVD
HLD
essential HTN
- cont home meds
DVT ppx: SC heparin
Code: Full
More than 30 minutes spent in discharge including
Final examination of the patient
Summarizing hospital stay
Instructions for continuing care to all relevant caregivers
Preparation of discharge records, prescriptions, and referral forms
Total time spent (in minutes): 41
Anticipated Discharge: Today
Subjective/Interval History
-
Date of Service: January 12, 2025
resting comfortably, no complaints at present
Objective Data
-
Labs:
Laboratory Results
01/12/25
05:21
WBC 8.2
Hgb 11.4 L
Hct 34.2 L
Plt Count 368
Sodium 139
Potassium 4.5
Chloride 107
Carbon Dioxide 24
BUN 12
Creatinine 0.6 L
Glucose 108 H
Calcium 8.8
Vital Signs:
Vital Signs
Temp Pulse Resp BP Pulse Ox
97.8 F 67 16 133/69 100
01/12/25 11:15 01/12/25 11:15 01/12/25 11:15 01/12/25 11:15 01/12/25 11:15
I&O
01/11/25 01/12/25 01/13/25
06:59 06:59 06:59
Intake Total 850 / 850 1889
Output Total 10 / 10
Balance 840 / 840 1889
Physical Exam
-
General: No Apparent Distress
HEENT: Normocephalic and Atraumatic
Respiratory: Negative Wheezes
Cardiac: Regular Rhythm and S1/S2
GI: Soft
Genito-urinary: No Costovertebral Tender
Neuro: AO x 3
Psych: Calm
Data Reviewed
-
Total Time Spent with Patient (in minutes): 41
Labs: Labs Reviewed by me
--- NOTE | 2025-01-12 11:29 | W.DS.TRANS ---
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
-
Discharge Instructions:
Discharge Diagnosis/Procedures L neck abscess after Left carotid endarterectomy
. s/p washout. s/p L neck washout, excision of
bovine pericardial patch and redo patch
angioplasty with saphenous vein 01/08. Culture
grew Viridans strep.
Diet Low Cholesterol
Activity No strenuous activity
Driving Restrictions Not until seen by your Dr
Bathing Restrictions OK to Shower
Instructions:
Stand-Alone Forms: Vascular Surg Discharge Instr
Changes to Home Medications: No
Discharge Medications:
DC Medications w/original date entered in [facility]
amlodipine 5 mg tablet 5 mg PO DAILY #30 tabs 10/09/24
aspirin 81 mg capsule 81 mg PO DAILY #30 caps 10/09/24
atorvastatin 20 mg tablet (Lipitor) 20 mg PO DAILY #30 tabs 10/09/24
cephalexin 500 mg capsule 500 mg PO QID #40 caps 01/12/25
Home Medication Changes
Pending Results: No
Total time spent discharging patient (in min): 41
--- NOTE | 2025-01-12 12:17 | CM ---
Reviewed the chart notes and spoke with the patient at the bedside. Per patient, a friend will provide transportation home. CM continues to be available to patient/family and is monitoring medical plan for needs at discharge.
Plan: Discharge to home today. No additional needs identified at this time.
--- NOTE | 2025-01-12 12:43 | W.PN.ID1 ---
Date of Service
Date of Service: January 12, 2025
Today's Communication
Continue antibiotics. See below�
Assessment / Plan
Left neck abscess s/p I+D 01/08
Cx's with Strep viridans
S/p recent left CEA
Leukocytosis- resolved
ASCVD
Carotid stenosis
HTN
AAA
Recommendations:
Cultures reviewed and reveal only Strep viridans.
Continue cefazolin.
At D/C, can transition to keflex 500 mg PO QID for an additional 10 days.
- Case discussed with Vascular Surgery. There is no 'hardware' in place, thus patient will not need suppressive antibiotics.
����������������������������������������������������������
Chief Complaint
-: Other (CEA site infection)
Subjective / Review of Systems
Patient seen and examined. Reports minimal pain in the left neck area
Review of Systems: No Fever and No Chills
Vital Signs / Physical Exam
Vital Signs
Vital Signs
Temp Pulse Resp BP Pulse Ox
97.8 F 67 16 133/69 100
01/12/25 11:15 01/12/25 11:15 01/12/25 11:15 01/12/25 11:15 01/12/25 11:15
Physical Exam
Constitutional: No Acute Distress, Comfortable and Non-toxic
Cardiovascular: Regular Rate and S1/S2
Pulmonary: Clear
Gastrointestinal: Soft, Non Tender and Non Distended
Extremities: Negative Edema
Wound: Other (Left neck dressing dry. Sutures in place. Wound C/D/I. No drainage. minimal erythema.)
Neurological: Awake, Alert and AO x 3
Psychological: Calm
Objective Data
Lab Data
Lab Results
01/12/25 05:21
01/12/25 05:21
PT 16.3 Sec (11.4-14.6) H 01/09/25 04:08
INR 1.28 01/09/25 04:08
APTT 31.7 Sec (23.4-35.0) 01/09/25 04:08
Estimated Creat Clear 110 ml/min 01/12/25 05:21
Lactic Acid Cancelled 01/08/25 02:15
Total Bilirubin 0.4 mg/dl (0.2-1.3) 01/10/25 05:15
AST 79 U/L (17-59) H 01/10/25 05:15
ALT 142 U/L (0-50) H 01/10/25 05:15
Alkaline Phosphatase 91 U/L (38-126) 01/10/25 05:15
Most recent labs reviewed.
Micro Results:
01/08/25 11:20 Anaerobic Culture - Preliminary
Abscess Culture pending. Anaerobic cultures are examined after 3
days incubation. Additional information to follow.
01/07/25 22:16 Blood Culture - Preliminary
Blood/Venous No Growth in 4 days- Final report to follow
01/07/25 22:16 Blood Culture - Preliminary
Blood/Venous No Growth in 4 days- Final report to follow
01/08/25 11:20 Wound Culture - Preliminary
Abscess Viridans Streptococcus Group
Gram Stain - Preliminary
01/08/25 01:40 Wound Culture - Final
Abscess Gram Stain - Final
Imaging:
01/07/2025 CT neck with angio: A large 7.5 cm complex rim-enhancing multiseptated fluid collection is noted in the left side of the neck in the left carotid and front end alignment specialist spaces surrounding the left carotid artery and extending into the left parotid
gland with overlying subcutaneous fat. Please see full dictation for additional detail. Film personally viewed.
Care Review
Plan reviewed with: Physician (Vascular Surgery; Hospitalist)
[2025-01-12 15:20] VITALS: BP 150/69
[2025-01-12] MEDS: ANCEF IV (16:36)
[2025-01-12] MEDS: HEPARIN SC (16:36)
== END 2025-01-12 18:53 | disposition home or self-care (01) | DRG 854 ==
LOC: 2 NORTH 01:21
PROVIDERS: Internal Medicine; Internal Medicine Infectious Disease; Nurse Practitioner Acute Care; Nurse Practitioner Family; ADMITTING PHYSICIAN Hospitalist; ATTENDING PHYSICIAN Internal Medicine; CONSULT PHYSICIAN Internal Medicine Critical Care Medicine; CONSULT PHYSICIAN Surgery Vascular Surgery; EMERGENCY PHYSICIAN Emergency Medicine; OTHER PHYSICIAN Internal Medicine Infectious Disease
PROC: 06BQ0ZZ Excision of Left Saphenous Vein, Open Approach (ICD-10-PCS; 2025-01-08)
PROC: 037 Upper Arteries, Dilation (ICD-10-PCS; 2025-01-08)
PROC: 0JB50ZZ Excision of Left Neck Subcutaneous Tissue and Fascia, Open Approach (ICD-10-PCS; 2025-01-08)
DX: A41.9 Sepsis, unspecified organism (principal); E87.20 Acidosis, unspecified; L02.11 Cutaneous abscess of neck; T81.41XA Infection following a procedure, superficial incisional surgical site, initial encounter; F10.11 Alcohol abuse, in remission; K70.30 Alcoholic cirrhosis of liver without ascites; Z87.891 Personal history of nicotine dependence; M48.02 Spinal stenosis, cervical region; I25.10 Atherosclerotic heart disease of native coronary artery without angina pectoris; E78.5 Hyperlipidemia, unspecified; I10 Essential (primary) hypertension; Z79.82 Long term (current) use of aspirin; Z79.899 Other long term (current) drug therapy; M47.819 Spondylosis without myelopathy or radiculopathy, site unspecified; D64.9 Anemia, unspecified
CPT/HCPCS: 88300; 35231; 70498; 71046; 76700; 80048; 80053; 80202; 82248; 83605; 83735; 84100; 85014; 85018; 85025; 85027; 85610; 85730; 86704; 86706; 86803; 86850; 86900; 86901; 87040; 87070; 87075; 87205; 87340; 95938; 96361; 96365; 96366; 96367; 96375; 99291; 99406; C1757; Q9967

== ENCOUNTER → 2025-02-18 13:55 | Outpatient (REF) | payer OTHER, SELFPAY | LOC: RAD 13:55 | PROVIDERS: ATTENDING PHYSICIAN Registered Nurse; FAMILY PHYSICIAN Internal Medicine | DX: I65.22 Occlusion and stenosis of left carotid artery (principal) | CPT/HCPCS: 93880 ==

== ENCOUNTER → 2025-03-09 07:06 | Outpatient (REF) | payer OTHER, SELFPAY ==
[2025-03-09 08:30] LABS: HDL Cholesterol 65 mg/dl; LDL Cholesterol, Calculated 84 mg/dl; Very Low Density Lipoprotein 17 mg/dl (0-30)
== END ==
LOC: REG 07:06
PROVIDERS: ATTENDING PHYSICIAN Internal Medicine
DX: I73.9 Peripheral vascular disease, unspecified (principal)
CPT/HCPCS: 36415; 80061

== ENCOUNTER → 2025-04-02 07:24 | Outpatient (REF) | payer OTHER, SELFPAY ==
--- NOTE | 2025-04-02 16:46 | EEG.RPT ---
Electroencephalogram Report
Recording
Date of EE04/02/25
Type of EEG: Routine
Length of EEG recordin minutes
Done with Video Recording: Yes
Patient Status: Outpatient
Recording Conditions: Awake and Drowsy
Hyperventilation Performed: Yes
Photic Stimulation Performed: Yes
Report
LESS THAN 1 HOUR EEG INTERPRETATION:
Unremarkable EEG for age
CLINICAL CORRELATION:
A normal EEG does not rule out a diagnosis of epilepsy.
If clinical suspicion for seizure persists, a prolonged recording may be warranted.
Clinical correlation is advised.
METHODS:
A 21 channel digitized electroencephalogram (EEG) was performed using the 10/20 international system of electrode placement and one-lead of ECG recorded. The Collect quantitative EEG system was utilized.
ELECTROENCEPHALOGRAPHER IMPRESSION(S):
Quality of study
Good
Background
There was an unremarkable anterior-posterior voltage gradient of alpha frequency.
With eye opening the background activity changed to a low voltage mixture of frequencies.
There were no significant asymmetries of background activity noted.
Sleep
Drowsiness present
Hyperventilation
No activation
Photic Stimulation
No activation
ECG
Normal sinus rhythm
== END ==
LOC: CLINIC 07:24
PROVIDERS: ATTENDING PHYSICIAN Internal Medicine
DX: R56.9 Unspecified convulsions (principal)
CPT/HCPCS: 95816

== ENCOUNTER → 2025-06-04 08:58 | Outpatient (REF) | payer OTHER, SELFPAY | LOC: PAVMRI 08:58 | PROVIDERS: ATTENDING PHYSICIAN Internal Medicine | DX: R55 Syncope and collapse (principal) | CPT/HCPCS: 70553; A9575 ==